=== PATIENT | male | born 1940 | race Caucasian/White ===

== ENCOUNTER 2017-06-26 12:04 | Day surgery (SDC) | payer MEDICARE, BC ==
[2017-06-21 11:17] VITALS: BMI 28.8
[~2017-06-26 12:04] MED LIST: LACTATED RINGERS 1,000 ML IV SCH
[2017-06-26 12:19] VITALS: TEMP 98
[2017-06-26] MEDS ORDERED: LACTATED RINGERS 1,000 ML IV ONE (12:19)
[2017-06-26] MEDS ORDERED: LIDOCAINE 1% 20 ML VIAL (10MG/ML) FOR IV START INTRADERMA ONE (12:19)
[2017-06-26] MEDS ORDERED: LIDOCAINE 1% INJ 10MG/ML (20 ML MDV) ONE (13:32)
[2017-06-26] MEDS ORDERED: PROPOFOL 10 MG/ML 20 ML VIAL IV ONE (13:32)
--- NOTE | 2017-06-26 13:47 | P.GSHP ---
History of Present Illness H&P Date: 06/26/17 Chief Complaint: Screen colonoscopy 's is a 76-year-old male referred from Dr. baldwin. Patient rents today for screening colonoscopy. Patient's last colonoscopy was over 10 years ago. He denies a significant GI complaints. Past Medical History Past Medical History: Asthma, CVA/TIA, Eye Disorder, GERD/Reflux, Hyperlipidemia , Hypertension, Myocardial Infarction ([place]) Additional Past Medical History / Comment(s): CVA-NO RESIDUAL EFFECTS. MACULAR DEGENERATION -RT EYE Last Myocardial Infarction Date:: 2006 History of Any Multi-Drug Resistant Organisms: None Reported Past Surgical History: Coronary Bypass/CABG, Heart Catheterization Additional Past Surgical History / Comment(s): BILAT CATARACTS REMOVED. CABG- 2006. COLONOSCOPY Past Anesthesia/Blood Transfusion Reactions: No Reported Reaction Smoking Status: Never smoker - Past Family History Brother(s) Family Medical History: Cancer Additional Family Medical History / Comment(s): 3 BROTHERS WITH CANCER Sister(s) Family Medical History: Cancer Medications and Allergies Home Medications Medication Instructions Recorded Confirmed Type Furosemide [Lasix] 40 mg PO DAILY PRN 06/21/17 06/21/17 History Loratadine [Claritin] 10 mg PO DAILY 06/21/17 06/21/17 History Metoprolol Tartrate [Lopressor] 12.5 mg PO BID 06/21/17 06/21/17 History Montelukast [Singulair] 10 mg PO HS 06/21/17 06/21/17 History Ranitidine HCl 150 mg PO BID 06/21/17 06/21/17 History Simvastatin 80 mg PO DAILY 06/21/17 06/21/17 History Warfarin [Coumadin] 5 mg PO DAILY 06/21/17 06/21/17 History Allergies Allergy/AdvReac Type Severity Reaction Status Date / Time No Known Allergies Allergy Verified 06/21/17 11:05 Surgical - Exam Vital Signs Temp Pulse Resp BP Pulse Ox 98.0 F 89 18 183/87 98 06/26/17 12:18 06/26/17 12:18 06/26/17 12:18 06/26/17 12:18 06/26/17 12:18 - General well developed, no distress - Eyes PERRL - ENT normal pinna - Neck no masses - Respiratory normal expansion - Cardiovascular Rhythm: regular - Abdomen Abdomen: soft, non tender Assessment and Plan Assessment: We'll perform screening colonoscopy
--- NOTE | 2017-06-26 14:10 | P.OP ---
Date of Procedure: 06/26/17 Preoperative Diagnosis: Screening colonoscopy Postoperative Diagnosis: Diverticulosis Procedure(s) Performed: Colonoscopy Anesthesia: MAC Surgeon: Mani Solis Pathology: none sent Condition: stable Disposition: PACU Description of Procedure: The patient's placed on the endoscopy table in the lateral position. He received IV sedation. Digital rectal exam was performed which revealed no abnormalities. Prostate was symmetric without nodules. Flexible colonoscope was then placed patient anus and passed throughout the entire colon. The colonoscope was then placed patient anus and passed throughout the entire colon. The ileocecal valve was visualized. The cecum, ascending transverse colon appeared normal. The descending; there is extensive diverticular changes. There is some evidence of some diverticular scarring of the colon. Scope was then brought back the rectum and this appeared normal. Scope was withdrawn for patient.
[2017-06-26 14:40] VITALS: BP 137/82; PULSE 64; RESP 20
== END 2017-06-26 14:52 | disposition home or self-care (01) ==
LOC: ORWHC2ENDO 12:04
PROVIDERS: ATTEND Surgery
DX: Z12.11 Encounter for screening for malignant neoplasm of colon (principal); K57.30 Diverticulosis of large intestine without perforation or abscess without bleeding; K21.9 Gastro-esophageal reflux disease without esophagitis; E78.5 Hyperlipidemia, unspecified; I25.10 Atherosclerotic heart disease of native coronary artery without angina pectoris; I10 Essential (primary) hypertension; J45.909 Unspecified asthma, uncomplicated; Z86.73 Personal history of transient ischemic attack (TIA), and cerebral infarction without residual deficits; I25.2 Old myocardial infarction; H35.30 Unspecified macular degeneration; Z95.1 Presence of aortocoronary bypass graft; Z79.01 Long term (current) use of anticoagulants; Z79.899 Other long term (current) drug therapy
CPT/HCPCS: J2001; J2704; G0121; 45378

== ENCOUNTER 2018-04-23 09:36 | Day surgery (SDC) | payer MEDICARE, BC ==
[2018-04-18 11:34] VITALS: BMI 29.3
[~2018-04-23 09:36] MED LIST changes: +DEXAMETHASONE SOD PHOSPHATE 10 MG/ML 1 ML VIAL IV ONE; +HYDROmorphone 0.5 MG/0.5 ML SYRINGE IVP PRN; +ONDANSETRON 4 MG/2 ML VIAL IVP ONE; +SCOPOLAMINE 1.5MG/72HR PATCH TRANSDERM ONE
[2018-04-23 09:59] VITALS: RESP 16; TEMP 97.6
[2018-04-23] MEDS ORDERED: LIDOCAINE 1% 20 ML VIAL (10MG/ML) FOR IV START INTRADERMA ONE (10:25)
[2018-04-23] MEDS ORDERED: LIDOCAINE 1% INJ 10MG/ML (20 ML MDV) ONE (10:33)
[2018-04-23] MEDS ORDERED: PROPOFOL 10 MG/ML 20 ML VIAL IV ONE (10:33)
--- NOTE | 2018-04-23 10:41 | P.GSHP ---
History of Present Illness H&P Date: 04/23/18 Chief Complaint: GERD This a 77-year-old male presents today for EGD. Patient's had issues with GERD. Past Medical History Past Medical History: Asthma, CVA/TIA, Eye Disorder, GERD/Reflux, Hyperlipidemia , Hypertension, Myocardial Infarction ([place]) Additional Past Medical History / Comment(s): STATES HAVING "BLOODY EMESIS" CVA- NO RESIDUAL EFFECTS, MACULAR DEGENERATION -RT EYE Last Myocardial Infarction Date:: 2006 History of Any Multi-Drug Resistant Organisms: None Reported Past Surgical History: Coronary Bypass/CABG, Heart Catheterization Additional Past Surgical History / Comment(s): BILAT CATARACTS REMOVED, CABG- 2006 X4, 22 STITCHES IN HEAD IN 2006, COLONOSCOPY Past Anesthesia/Blood Transfusion Reactions: No Reported Reaction Smoking Status: Never smoker - Past Family History Brother(s) Family Medical History: Cancer Additional Family Medical History / Comment(s): 3 BROTHERS WITH CANCER Sister(s) Family Medical History: Cancer Medications and Allergies Home Medications Medication Instructions Recorded Confirmed Type Furosemide [Lasix] 40 mg PO DAILY PRN 06/21/17 04/23/18 History Loratadine [Claritin] 10 mg PO DAILY 06/21/17 04/23/18 History Metoprolol Tartrate [Lopressor] 12.5 mg PO BID 06/21/17 04/23/18 History Montelukast [Singulair] 10 mg PO HS 06/21/17 04/23/18 History Ranitidine HCl 150 mg PO BID 06/21/17 04/23/18 History Simvastatin 80 mg PO DAILY 06/21/17 04/23/18 History Warfarin [Coumadin] 2.5 mg PO DAILY 06/21/17 04/23/18 History Albuterol Inhaler [Ventolin Hfa 1 - 2 puff INHALATION RT-Q6H PRN 04/18/18 History Inhaler] Vit C/E/Zn/Coppr/Lutein/Zeaxan 1 each PO BID 04/18/18 04/23/18 History [Preservision Areds 2 Softgel] Allergies Allergy/AdvReac Type Severity Reaction Status Date / Time No Known Allergies Allergy Verified 04/23/18 10:00 Surgical - Exam Vital Signs Temp Pulse Resp BP Pulse Ox 97.6 F 57 L 16 173/82 95 04/23/18 09:58 04/23/18 09:58 04/23/18 09:58 04/23/18 09:58 04/23/18 09:58 - General well developed, no distress - Eyes PERRL - ENT normal pinna - Neck no masses - Respiratory normal expansion - Cardiovascular Rhythm: regular - Abdomen Abdomen: soft, non tender Assessment and Plan Assessment: GERD. We'll perform EGD.
--- NOTE | 2018-04-23 10:49 | P.OP ---
Date of Procedure: 04/23/18 Preoperative Diagnosis: GERD Postoperative Diagnosis: Antral gastritis Procedure(s) Performed: EGD Anesthesia: MAC Surgeon: Mani Solis Pathology: other (Antrum) Condition: stable Disposition: PACU Description of Procedure: The patient's placed on the endoscopy table in the lateral position. He received IV sedation. The gastric was placed oropharynx passed in the esophagus and stomach. Scope was then placed through the pylorus. The first and second portion of the duodenum appeared normal. The scope was then brought back the antrum and this appeared mildly inflamed. A biopsies performed. Scope was then retroflexed and the remainder stomach appeared normal. As no evidence of a hiatal hernia. The distal esophagus. Normal. The proximal esophagus. Normal. Scope withdrawn for patient.
[2018-04-23 11:19] VITALS: BP 140/78; PULSE 56
== END 2018-04-23 11:33 | disposition home or self-care (01) ==
LOC: ORWHC2ENDO 09:36
PROVIDERS: ATTEND Surgery
DX: K29.50 Unspecified chronic gastritis without bleeding (principal); K21.9 Gastro-esophageal reflux disease without esophagitis; J45.909 Unspecified asthma, uncomplicated; I10 Essential (primary) hypertension; E78.5 Hyperlipidemia, unspecified; I25.10 Atherosclerotic heart disease of native coronary artery without angina pectoris; I25.2 Old myocardial infarction; Z86.73 Personal history of transient ischemic attack (TIA), and cerebral infarction without residual deficits; Z95.1 Presence of aortocoronary bypass graft; Z98.61 Coronary angioplasty status; Z79.01 Long term (current) use of anticoagulants; Z79.899 Other long term (current) drug therapy
CPT/HCPCS: 88305; 43239; J1100; J2405; J2001; J2704

== ENCOUNTER → 2020-12-13 | Outpatient (CLI) | payer MEDICARE, BC ==
--- NOTE | 2020-12-13 17:19 | US ---
EXAMINATION TYPE: US chest DATE OF EXAM: 12/13/2020 COMPARISON: NONE CLINICAL HISTORY: J90 PLEURAL EFFUSION. Pt states known pleural effusions from images done at outside facility TECHNIQUE: Targeted ultrasound of the posterior lower bilateral hemithoraces EXAM MEASUREMENTS: Right Pleural Effusion pocket size: 3.5 cm Right skin surface to fluid distance: 3.3 cm Left Pleural Effusion pocket size: 8.1 cm Left skin surface to fluid distance: 3.3 cm Right side NOT marked for possible thoracentesis outside the dept. Left side marked for possible thoracentesis outside the dept. Pulmonologists are able to review the images in the patient?s EMR. IMPRESSIONS: 1. Bilateral pleural effusions as described above. The right side was NOT marked for thoracentesis . The left side was marked for possible thoracentesis.
== END | disposition home or self-care (01) ==
LOC: RADUSWWP 14:41
PROVIDERS: ATTEND Internal Medicine
DX: J90 Pleural effusion, not elsewhere classified (principal)
CPT/HCPCS: 76604

== ENCOUNTER → 2020-12-22 | Outpatient (CLI) | payer MEDICARE, BC ==
[2020-12-23 02:33] LABS: African American GFR (CKD) 47.1 (60.0-200.0); Anion Gap 13.6 mmol/L (4.00-12.00); BUN/Creat Ratio 27.5 Ratio (12.00-20.00); Calcium 10.1 mg/dL (8.7-10.3); Carbon Dioxide 23.4 mmol/L (21.6-31.8); Non-African American GFR(CKD) 40.7 (60.0-200.0); Potassium 4.6 mmol/L (3.5-5.5)
== END | disposition home or self-care (01) ==
LOC: LABWHC1 13:53
PROVIDERS: ATTEND Internal Medicine
DX: I50.9 Heart failure, unspecified (principal)
CPT/HCPCS: 36415; 80048; 83880

== ENCOUNTER → 2021-01-27 | Outpatient (CLI) | payer MEDICARE, BC ==
[2021-01-28 02:51] LABS: African American GFR (CKD) 66.7 (60.0-200.0); Anion Gap 10.1 mmol/L (4.00-12.00); Calcium 10.4 mg/dL (8.7-10.3); Carbon Dioxide 21.9 mmol/L (21.6-31.8); Chol/HDL Ratio 2.5; LDL Cholesterol,Calculated 57.8 mg/dL (0.0-131.0); Non-African American GFR(CKD) 57.6 (60.0-200.0); Potassium 4.7 mmol/L (3.5-5.5); VLDL Calculation 14.2 mg/dL (5.00-40.00)
== END | disposition home or self-care (01) ==
LOC: LABWHC1 10:38
PROVIDERS: ATTEND Internal Medicine Clinical Cardiac Electrophysiology
DX: I10 Essential (primary) hypertension (principal); I25.10 Atherosclerotic heart disease of native coronary artery without angina pectoris; Z95.1 Presence of aortocoronary bypass graft
CPT/HCPCS: 36415; 80048; 80061; 84443

== ENCOUNTER 2023-01-09 11:36 | Day surgery (SDC) | payer MEDICARE, BC ==
[~2023-01-09 11:36] MED LIST changes: +ALPRAZolam 0.25 MG TAB PO PRN; +ALPRAZolam 0.5 MG TAB PO PRN; +ASPIRIN 325 MG TAB PO STA; +ATORVASTATIN 80 MG TAB PO STA; -DEXAMETHASONE SOD PHOSPHATE 10 MG/ML 1 ML VIAL IV ONE; +HEPARIN SODIUM,PORCINE 10,000 UNIT in SODIUM CHLORIDE 0.9% 1,000 ML IRRIGATION PRN; +HEPARIN SODIUM,PORCINE 2,500 UNIT in SODIUM CHLORIDE 0.9% 250 ML IRRIGATION PRN; -HYDROmorphone 0.5 MG/0.5 ML SYRINGE IVP PRN; -LACTATED RINGERS 1,000 ML IV SCH; +NITROGLYCERIN SL TABS 0.4 MG TAB SUBLINGUAL PRN; -ONDANSETRON 4 MG/2 ML VIAL IVP ONE; -SCOPOLAMINE 1.5MG/72HR PATCH TRANSDERM ONE
[2023-01-09] MEDS: SODIUM CHLORIDE 0.9% 1,000 ML in EMPTY BAG 1 BAG IV SCH ×2 (11:59→20:40)
[2023-01-09 12:15] LABS: Anisocytosis Slight; Basophils % (A) 0 %; Eosinophils # (A) 0.2 k/uL (0-0.7); Eosinophils % (A) 2 %; HCT 36.2 % (39.0-53.0); HGB 11.8 gm/dL (13.0-17.5); Lymphocytes # (A) 0.8 k/uL (1.0-4.8); Lymphocytes % (A) 11 %; MCH 29.2 pg (25.0-35.0); MCHC 32.6 g/dL (31.0-37.0); MCV 89.6 fL (80.0-100.0); Mean Platelet Volume 8.6; Monocytes # (A) 0.6 k/uL (0-1.0); Monocytes % (A) 8 %; Neutrophils # (A) 5.7 k/uL (1.3-7.7); Neutrophils % (A) 76 %; Platelet Count 166 k/uL (150-450); RBC 4.04 m/uL (4.30-5.90); RDW 16.7 % (11.5-15.5); WBC 7.5 k/uL (3.8-10.6)
[2023-01-09 12:31] LABS: African American GFR (CKD) 67 (>60 ml/min/1.73 sqM); Anion Gap 9 mmol/L; Blood Urea Nitrogen 22 mg/dL (9-20); Calcium 9.4 mg/dL (8.4-10.2); Carbon Dioxide 23 mmol/L (22-30); Chloride 103 mmol/L (98-107); Glucose 91 mg/dL (74-99); Non-African American GFR(CKD) 58 (>60 ml/min/1.73 sqM); Potassium 4.6 mmol/L (3.5-5.1); Sodium 135 mmol/L (137-145)
[2023-01-09] MEDS ORDERED: fentaNYL (PF) 50 MCG/ML 2 ML AMP ONE (15:03)
[2023-01-09] MEDS ORDERED: IV FLUID CONTINUATION 350 ML IV ONE (15:08)
[2023-01-09] MEDS: BENZOCAINE SPRAY 1 CAN TOPICAL ONE ×2 (15:10→15:19)
[2023-01-09] MEDS ORDERED: MIDAZOLAM 2 MG/2 ML VIAL IVP ONE ×2 (15:19→15:22)
[2023-01-09] MEDS: fentaNYL (PF) 50 MCG/ML 2 ML AMP IVP ONE ×2 (15:19→15:22)
[2023-01-09] MEDS ORDERED: LIDOCAINE 1% INJ 10MG/ML (20 ML MDV) ONE (15:49)
[2023-01-09] MEDS ORDERED: LIDOCAINE 1% INJ 10MG/ML (20 ML MDV) SQ ONE (15:58)
[2023-01-09] MEDS ORDERED: HEPARIN SODIUM 1,000 UN/ML (10ML VL) ONE (16:22)
[2023-01-09] MEDS ORDERED: HEPARIN SODIUM 1,000 UN/ML (10ML VL) IV ONE (16:23)
[2023-01-09] MEDS ORDERED: IOPAMIDOL-370 100ML BTL INJ ONE (16:32)
[2023-01-09 16:33] LABS: O2 Sat Blood Gas 96.6 %
[2023-01-09 16:34] LABS: O2 Sat Blood Gas 58.1 %
[2023-01-09 18:09] VITALS: RESP 17; TEMP 96.7
[2023-01-09 21:52] VITALS: BP 158/59; PULSE 57
--- NOTE | 2023-01-09 23:11 | P.TEE ---
Description of Procedure(s): Procedure performed: Transesophageal Echocardiogram with color flow doppler, pulsed wave doppler and continuous wave doppler, moderate conscious sedation Moderate conscious sedation: Moderate conscious sedation was supplied with direct supervision of myself using Versed and Fentanyl. Complications: none Indications: Aortic stenosis PROCEDURE: After the risks, benefits and alternatives of the above mentioned procedure was explained in detail with the patient, informed consent was obtained. Patient was brought to the lab in a fasting state. Patient was given IV Versed and Fentanyl for sedation. The throat was sprayed with Hurricane to anesthetize the throat. A lubricated Omni probe was then introduced into the esophagus and stomach and multiple views were obtained. 2D echo with color flow doppler, pulsed wave doppler and continuous wave doppler was utilized. Agitated saline bubbles were injected to assess for any intra-atrial shunt. The probe was then removed. Patient tolerated the procedure well. Patient was transferred to the post procedure area in stable and satisfactory condition. FINDINGS: 1. The aortic valve is tricuspid with moderate aortic stenosis and moderate aortic regurgitation. ARIEL 1.1-1.3cm2 by planimetry. 2. The mitral valve appears be normal with moderate mitral regurgitation. There is systolic blunting of pulmonary vein however no flow reversal. 3. Tricuspid valve appears to be normal with moderate to severe tricuspid regurgitation 4. There is no PFO, negative bubble study 5. Left atrial appendage is free of clot. 6. Left ventricular ejection fraction 50-55% without wall motion abnormalities
--- NOTE | 2023-01-09 23:46 | P.CARDCATH ---
Description of Procedure: PROCEDURES PERFORMED: Left and right heart catheterization, left coronary angiography, MOREIRA to diagonal angiography, ultrasound guided arterial access INDICATION: Aortic stenosis, dyspnea with minimal exertion, CAD with history of CABG CONSENT:I have discussed the risks, benefits and alternative therapies for the above-mentioned procedure and for both sedation/analgesia as well as necessary blood product administration, if indicated, as they pertain to this patient. The patient has indicated understanding and acceptance of the risks and procedures discussed. PROCEDURE: After the risks, benefits and alternatives of the above mentioned procedure explained in detail with the patient, informed consent was obtained. Patient was taken to the catheterization lab and prepped and draped in usual fashion. There was significant difficulty engaging the left main previously in 2020 from left radial approach and therefore femoral access was recommended. A 6Fr sheath was placed in the right femoral artery and right femoral vein using ultrasound guidance and modified Seldinger technique. A 6Fr [place] Yobany catheter was placed in the RA, RV, PA and PCWP positions. Thermodilution was performed and oxygen saturations were obtained for CLEMENTINE calculations. The [place] Yobany catheter was removed. The RCA was noted to be occluded previously and given contrast threshold not imaged again. The only remaining graft noted from 2020 was MOREIRA to mid LAD/ diagonal branch. MOREIRA to LAD angiography was performed with a 6Fr MOREIRA catheter. Left coronary angiography was performed with a 6- German CLS 4.5 catheter. There was dampening of the left main with engagement with the 6Fr catheter. Given contrast threshold, complex disease, the decision was made to stop the procedure. The right femoral angiogram showed adequate anatomy and a 6Fr Angioseal was placed with hemostasis achieved. The venous sheath was left in place to be pulled at a later time. The patient tolerated the procedure well. Patient was transported back to the post catheterization holding area in stable condition. Conscious Sedation: Patient was monitored under the direct supervision of myself for conscious sedation using Versed and fentanyl for a total duration of 36 minutes HEMODYNAMICS: Aorta: 143/66 LV: 155/7, LVEDP 16. Mean gradient 15mmHg with pullback PCWP: 21 PA: 62/24 RV: 62/6 RA: 13 RA oxygen sat: 58% PA oxygen sat: 58% Femoral arterial oxyegn sat:97% Cardiac output by CLEMENTINE: 4.99 L/min Cardiac index by CLEMENTINE: 2.43 L/min/m2 Cardiac outpt by thermodiluation: 4.2 L/min Cardiac index by thermodilution: 2.07 L.min/m2 SELECTIVE CORONARY ARTERIOGRAPHY: LEFT MAIN: The left main is a large caliber vessel which bifurcates into the LAD and circumflex. There is distal left main 95% stenosis LEFT ANTERIOR DESCENDING CORONARY ARTERY: LAD is a large caliber vessel which wraps around to the apex. There is 100% proximal LAD stenosis. LEFT CIRCUMFLEX CORONARY ARTERY: Left circumflex is a moderate caliber vessel. The circumflex comes off at a nearly 120 degree angle. There is diffuse midl 20-30% proximal stenosis. There is 90% stenosis of OM1. There are left to right collaterals. RIGHT CORONARY ARTERY: The right coronary artery was not imaged however known to be occluded. MOREIRA to LAD/diagonal angiography: The MOREIRA is widely patent. It appears to tie into a short segment of mid LAD and a diagonal 1 branch. There appears to be faint left to left collaterals up to the mid to apical LAD. FINAL IMPRESSION: 1. CAD as described above including 95% distal left main stenosis 90% OM1 stenosis, 100% proximal LAD and known 100% RCA stenosis 2. Only patent graft MOREIRA to mid LAD/diagonal 3. Low normal CO/CI 4. Mild to moderate aortic stenosis by gradients 5. Mildly elevated left and right sided pressures PLAN: 1. Aggressive risk factor modification per most recent ACC/AHA guidelines. 2. Patient with poor anatomy for complete revascularization with stress and echo showing viable myocardium in LAD and RCA distribution. [place] revascularization would be by redo CABG however if felt too high risk would recommend PCI left main into circumflex. May be difficult with angulation and may require support.
== END 2023-01-09 22:00 | disposition home or self-care (01) ==
LOC: CATHCVL 11:36 → 6NMEDSUR 16:36 → CATHCVL 22:00
PROVIDERS: ATTEND Internal Medicine
DX: I25.10 Atherosclerotic heart disease of native coronary artery without angina pectoris (principal); I35.0 Nonrheumatic aortic (valve) stenosis; I10 Essential (primary) hypertension; E78.5 Hyperlipidemia, unspecified; Z95.1 Presence of aortocoronary bypass graft; Z79.899 Other long term (current) drug therapy
CPT/HCPCS: 93312; 93320; 93325; 93461; 76937; 80048; 85018; 82810; 85025; C1760; C1769 ×3; C1887; C1894 ×3; J2250; J2001; J3010; J1644; Q9967

== ENCOUNTER 2023-02-08 13:30 | Inpatient (IN) | payer MEDICARE, BC ==
[2023-02-05 09:48] VITALS: BMI 28.5
[2023-02-08 12:37] LABS: Anisocytosis Slight; Basophils % (A) 0 %; Eosinophils # (A) 0.2 k/uL (0-0.7); Eosinophils % (A) 3 %; HCT 35.8 % (39.0-53.0); HGB 11.8 gm/dL (13.0-17.5); Hypochromasia Slight; Lymphocytes # (A) 0.6 k/uL (1.0-4.8); Lymphocytes % (A) 9 %; MCH 29.3 pg (25.0-35.0); MCV 88.7 fL (80.0-100.0); Mean Platelet Volume 8.1; Monocytes # (A) 0.7 k/uL (0-1.0); Monocytes % (A) 10 %; Neutrophils % (A) 74 %; Platelet Count 170 k/uL (150-450); RBC 4.04 m/uL (4.30-5.90); RDW 16.1 % (11.5-15.5); WBC 6.7 k/uL (3.8-10.6)
[2023-02-08 12:38] LABS: INR 1.2 (<1.2); Prothrombin Time 12.4 sec (9.0-12.0)
[2023-02-08 12:41] LABS: African American GFR (CKD) 59 (>60 ml/min/1.73 sqM); Anion Gap 8 mmol/L; Blood Urea Nitrogen 19 mg/dL (9-20); Calcium 9.5 mg/dL (8.4-10.2); Carbon Dioxide 26 mmol/L (22-30); Chloride 100 mmol/L (98-107); Glucose 95 mg/dL (74-99); Non-African American GFR(CKD) 51 (>60 ml/min/1.73 sqM); Potassium 4.4 mmol/L (3.5-5.1); Sodium 134 mmol/L (137-145)
[~2023-02-08 13:30] MED LIST changes: +HEPARIN SODIUM,PORCINE (1 ML) 2,500 UNIT in SODIUM CHLORIDE 0.9% 250 ML IRRIGATION PRN; -HEPARIN SODIUM,PORCINE 2,500 UNIT in SODIUM CHLORIDE 0.9% 250 ML IRRIGATION PRN; +SODIUM CHLORIDE 0.9% 1,000 ML IV ONE
[2023-02-08] MEDS ORDERED: fentaNYL (PF) 50 MCG/ML 2 ML AMP ONE (13:38)
[2023-02-08] MEDS: MIDAZOLAM 2 MG/2 ML VIAL IVP ONE ×2 (13:49→15:21)
[2023-02-08] MEDS ORDERED: LIDOCAINE 1% INJ 10MG/ML (20 ML MDV) SQ ONE (13:49)
[2023-02-08] MEDS: fentaNYL (PF) 50 MCG/ML 2 ML AMP IVP ONE ×2 (13:49→15:21)
[2023-02-08] MEDS: HEPARIN SODIUM 1,000 UN/ML (10ML VL) IV ONE ×6 (13:58→15:34)
[2023-02-08] MEDS: NITROGLYCERIN 1000MCG/10ML SYRINGE INTRACORON ONE ×3 (14:46→14:59)
[2023-02-08] MEDS ORDERED: IOPAMIDOL-370 100ML BTL INJ ONE ×2 (15:01→16:15)
[2023-02-08] MEDS ORDERED: HEPARIN SODIUM 1,000 UN/ML (10ML VL) ONE (15:12)
[2023-02-08] MEDS ORDERED: NITROGLYCERIN SL TABS 0.4 MG TAB SUBLINGUAL PRN (16:30)
[2023-02-08] MEDS ORDERED: RX INFO: IV CONTRAST WAS GIVEN 1 EACH MISC MISCELLANE PRN (16:30)
[2023-02-08] MEDS ORDERED: SODIUM CHLORIDE 0.9% 1,000 ML in EMPTY BAG 1 BAG IV SCH (16:30)
[2023-02-08] MEDS ORDERED: ALBUTEROL NEBULIZED 2.5 MG/3 ML INHALATION PRN (16:32)
[2023-02-08] MEDS: SODIUM CHLORIDE 0.9% 1,000 ML in EMPTY BAG 1 BAG IV SCH ×2 (18:35→22:10)
[2023-02-08] MEDS: carvediloL 3.125 MG TAB PO SCH (18:38)
[2023-02-08] MEDS ORDERED: WARFARIN 5 MG TAB PO ONE (20:00)
[2023-02-08] MEDS ORDERED: DONEPEZIL 10 MG TAB PO SCH (21:00)
[2023-02-08] MEDS ORDERED: ATORVASTATIN 80 MG TAB PO SCH (21:00)
[2023-02-08] MEDS ORDERED: LORATADINE 10 MG TAB PO SCH (21:00)
[2023-02-08] MEDS: RANOLAZINE 500 MG TAB.ER.12H PO SCH (21:59)
[2023-02-08] MEDS: VIT A,C & E-LUTEIN-MINERALS 1 EACH TAB PO SCH (22:11)
--- NOTE | 2023-02-08 23:08 | P.PRCINT ---
Percutaneous Coronary Int. - Percutaneous Coronary Intervention Percutaneous Coronary Intervention: PROCEDURES PERFORMED: Left coronary angiography, ultrasound guided arterial access, Impella protected PCI of left main into circumflex with a 3.5 x 23mm Xience MICHELLE, post dilated with a 4.5 NC balloon, PCI circumflex into OM2 with overlapping 3.0 x 12mm Xience, 3.0 x 28mm Xience, 3.0 x 8mm Xience and PCI OM1 with Xience 2.5 x 23mm Xience MICHELLE with kissing balloon angioplasty, Shockwave lithotripsy balloon angioplasty left main INDICATION: CAD with 90% distal left main stenosis, dyspnea on exertion CONSENT:I have discussed the risks, benefits and alternative therapies for the above-mentioned procedure and for both sedation/analgesia as well as necessary blood product administration, if indicated, as they pertain to this patient. The patient has indicated understanding and acceptance of the risks and procedur es discussed. PROCEDURE: After the risks, benefits and alternatives of the above mentioned procedure explained in detail with the patient, informed consent was obtained. Patient was taken to the catheterization lab and prepped and draped in usual fashion. A 6Fr sheath was placed in the right femoral artery using modified Seldinger technique and ultrasound guidance. 2 Perclose Preclose were placed at the 10 and 2 oclock position. Next a 14 Fr sheath was placed. A 6 Fr pigtail catheter was inserted into the left ventricle and pressure measurements were made. Next a Impelle CP was placed in the LV over a 0.018 wire. The Impella was turned on with 3.5L/min outpt The decision was made to perform PCI of the left main into circumflex. A 0.014 BMW wire was advanced into the distal circumflex. An additional 0.014 whisper wire was advanced into the OM2. A 32.5 x 12 then 3.0 x 12mm balloon was used to predilate the left main into circumflex. IVUS was performed which showed reference vessel 3.25-3.5 of the circumflex and diffuse disease of the left main. Next Shockwave lithotripsy angioplasty was performed for 10 rounds of the left main was a 3.0 balloon. Next a 2.5 x 12 mm balloon was used to predilate OM1 and OM2. There was temporary no reflow of OM1 and balloon angioplasty restored flow. Next a 2.5 x 23mm Xience MICHELLE was placed in the OM1 into the circumflex. Balloon angioplasty was used to crush the proximal portion of the OM1 stent. Next the wire was removed from the OM1 and placed in the OM2 branch and the OM1 wire was placed in the OM2 branch. Kissing balloon angioplasty was performed with a 2.5 x 12 and 3.0 x 12mm balloon in the OM1 and OM2 respectively. Next a 3.0 x 28mm Xience MICHELLE was placed jailing the OM1 branch. There was still distal disease which was covered with a 3.0 x 8mm Xience MICHELLE. There was some difficulty advancing a 3.0 x 15 mm Xience MICHELLE at the proximal portion of the stent, however with the help of a guideliner, a 3.0 x 12mm Xience MICHELLE was able to be placed proximal to the stents in the mid circumflex. The left main was predilated with a 4.0 NC balloon. Next a 3.5 x 23mm Xience MICHELLE was placed in the left main into the circumflex and deployed. The proximal and mid portion of the stent were post dilated with a 4.5 NC balloon. Repeat IVUS showed good stent expansion with no dissection. Final angiograms were performed. Preintervention there was 90% left main stenosis and CHRISTOFER 3 flow and post intervention there was <10% stenosis and CHRISTOFER 3 flow. The Impella was weaned and withdrawn from the ventricle and withdrawn from the sheath. The 14 Fr sheath was removed and the Percloses were deployed with hemostasis achieved. The patient tolerated the procedure well. Patient was transported back to the post catheterization holding area in stable condition. Conscious Sedation: Patient was monitored under the direct supervision of myself for conscious sedation using Versed and fentanyl for a total duration of 157 m inutes HEMODYNAMICS: Ao: 134/71 LV: 131/8, LVEDP 18 SELECTIVE CORONARY ARTERIOGRAPHY: LEFT MAIN: The left main is a large caliber vessel which bifurcates into the LAD and circumflex. There is distal left main 90% stenosis LEFT ANTERIOR DESCENDING CORONARY ARTERY: LAD is a large caliber vessel which wraps around to the apex. There is 100% proximal LAD stenosis. LEFT CIRCUMFLEX CORONARY ARTERY: Left circumflex is a moderate caliber vessel. There is diffuse mile 20-30% proximal stenosis. There is 90% stenosis of OM1. There is 95% stenosis of mid circumflex into OM2. There are left to right collaterals. RIGHT CORONARY ARTERY: The right coronary artery was not imaged however known to be occluded. MOREIRA to LAD/diagonal angiography: The MOREIRA was not imaged however known to be patent FINAL IMPRESSION: 1. CAD as described above including 90% distal left main stenosis 90% OM1 stenosis, 95% stenosis OM2, 100% proximal LAD and known 100% RCA stenosis 2. Only patent graft MOREIRA to mid LAD/diagonal 3. S/p Impella protected PCI of left main into circumflex with a 3.5 x 23mm Xience MICHELLE, post dilated with a 4.5 NC balloon, PCI circumflex into OM2 with overlapping 3.0 x 12mm Xience, 3.0 x 28mm Xience, 3.0 x 8mm Xience and PCI OM1 with Xience 2.5 x 23mm Xience MICHELLE with kissing balloon angioplasty, Shockwave lithotripsy balloon angioplasty left main PLAN: 1. Aggressive risk factor modification per most recent ACC/AHA guidelines. 2. Continue Plavix and Coumadin for 6 months. 3. Consider KICK BOXER of RCA if still having significant angina type symptoms.
[2023-02-09 04:50] LABS: Glucose,Whole Blood 120 mg/dL (70-110)
[2023-02-09] MEDS: carvediloL 3.125 MG TAB PO SCH ×2 (05:20→17:40)
[2023-02-09] MEDS: SODIUM CHLORIDE 0.9% 1,000 ML in EMPTY BAG 1 BAG IV SCH ×2 (05:23→15:35)
[2023-02-09] MEDS ORDERED: SYMBICORT 80-4.5 MCG INHALER INHALATION SCH (08:00)
[2023-02-09 08:18] VITALS: TEMP 97.9
[2023-02-09] MEDS: RANOLAZINE 500 MG TAB.ER.12H PO SCH (08:18)
[2023-02-09] MEDS: VIT A,C & E-LUTEIN-MINERALS 1 EACH TAB PO SCH (08:19)
[2023-02-09] MEDS ORDERED: FAMOTIDINE 20 MG TAB PO SCH (09:00)
[2023-02-09] MEDS ORDERED: ASPIRIN 81 MG PO SCH (09:00)
[2023-02-09] MEDS ORDERED: allopurinoL 300 MG TAB PO SCH (09:00)
[2023-02-09] MEDS ORDERED: ISOSORBIDE MONONITRATE ER 30 MG TAB.ER.24H PO SCH (09:00)
[2023-02-09] MEDS ORDERED: CLOPIDOGREL 75 MG TAB PO SCH (09:00)
[2023-02-09] MEDS ORDERED: EZETIMIBE 10 MG TAB PO SCH (09:00)
[2023-02-09 09:53] LABS: African American GFR (CKD) 66 (>60 ml/min/1.73 sqM); Non-African American GFR(CKD) 57 (>60 ml/min/1.73 sqM)
[2023-02-09 09:57] LABS: INR 1.1 (<1.2); Prothrombin Time 11.8 sec (9.0-12.0)
[2023-02-09 11:36] VITALS: RESP 16
[2023-02-09 15:22] VITALS: BP 143/75; PULSE 85
[2023-02-09] MEDS ORDERED: FUROSEMIDE 10 MG/ML 4 ML VIAL IV STA (15:31)
[2023-02-09] MEDS ORDERED: WARFARIN 7.5 MG TAB PO ONE ×2 (16:00→18:00)
[2023-02-09] MEDS ORDERED: WARFARIN 5 MG TAB PO SCH (18:00)
--- NOTE | 2023-02-09 22:41 | P.PN ---
Subjective Progress Note Date: 02/09/23 SUBJECTIVE: Patient had a complex coronary intervention with intravenous support yesterday. He tolerated the procedure well. His right groin access site appears intact with no concerns of bleeding or hematoma Vitals: 143/75, heart rate 85 Labs: Creatinine is stable at 1.1 PHYSICAL EXAMINATION Vital signs reviewed. Head: Normocephalic. Eyes: Sclerae nonicteric. Neck: Brisk carotid upstroke, no jugular venous distention. Lungs: Clear to auscultation. Heart: Regular rate and rhythm, S1-S2, no S3, no murmur or rub. Abdomen: Soft nontender, positive bowel sounds no organomegaly. Extremities: No edema, intact distal pulses. ASSESSMENT Coronary artery disease status post complex PCI with 5 stents to circumflex, impaired-assisted procedure PLAN Patient received IV fluids after cardiac interventions and appears mildly fluid overloaded. His kidney function is stable. I will give him 1 dose of IV Lasix 40 mg. Patient is safe to be discharged from [facility] standpoint Continue his current cardiac medication without any changes. He is on aspirin and Plavix. Imdur 30 mg, Ranexa 500 mg, warfarin. Patient was offered to be prescribed Eliquis but they prefer warfarin at this time. I explained him the risk for being on triple blood thinners. Nondistended and if they have any bleeding they will notify us. One of her Dr. Bowers shortly in 1-2 weeks Objective - Vital Signs Vital signs: Vital Signs Temp 97.9 F 02/09/23 08:17 Pulse 85 02/09/23 15:21 Resp 16 02/09/23 15:21 BP 143/75 02/09/23 15:21 Pulse Ox 92 L 02/09/23 15:21 FiO2 Intake & Output 02/09/23 02/09/23 02/10/23 06:59 18:59 06:59 Output Total 150 Balance -150 Output: Urine 150 Other: Voiding Method Urinal # Voids 1 - Labs CBC & Chem 7: 02/08/23 11:48 02/09/23 08:46 Labs: Abnormal Lab Results - Last 24 Hours (Table) 02/09/23 Range/Units 04:47 POC Glucose (mg/dL) 120 H (70-110) mg/dL
[2023-02-10] MEDS ORDERED: FUROSEMIDE 20 MG TAB PO SCH (09:00)
[2023-02-10] MEDS ORDERED: FAMOTIDINE 20 MG TAB PO SCH (09:00)
== END 2023-02-09 17:59 | disposition home or self-care (01) | DRG 220 ==
LOC: 3SCARD 16:45
PROVIDERS: ADMIT Internal Medicine; ATTEND Internal Medicine
PROC: 5A0221D Assistance with Cardiac Output using Impeller Pump, Continuous (ICD-10-PCS; principal; 2023-02-08 13:30)
PROC: 027037Z Dilation of Coronary Artery, One Artery with Four or More Drug-eluting Intraluminal Devices, Percutaneous Approach (ICD-10-PCS; 2023-02-08 13:30)
PROC: 02F03ZZ Fragmentation in Coronary Artery, One Artery, Percutaneous Approach (ICD-10-PCS; 2023-02-08 13:30)
DX: I25.10 Atherosclerotic heart disease of native coronary artery without angina pectoris (principal); I48.19 Other persistent atrial fibrillation; I71.21 Aneurysm of the ascending aorta, without rupture; I10 Essential (primary) hypertension; I25.5 Ischemic cardiomyopathy; E78.5 Hyperlipidemia, unspecified; I08.3 Combined rheumatic disorders of mitral, aortic and tricuspid valves; Z95.1 Presence of aortocoronary bypass graft; Z79.01 Long term (current) use of anticoagulants; Z79.02 Long term (current) use of antithrombotics/antiplatelets; Z79.82 Long term (current) use of aspirin; Z79.899 Other long term (current) drug therapy
CPT/HCPCS: 0715T; 33990; 80048; 82565; 85025; 85610; 92978; 94640; 94760

== ENCOUNTER 2023-04-01 18:47 | Inpatient (IN) | payer MEDICARE, BC ==
--- NOTE | 2023-04-01 19:47 | ED ---
General Adult HPI - General Source: RN notes reviewed <Yulia Morris - Last Filed: 04/01/23 19:46> - General Source: RN notes reviewed, old records reviewed Limitations: no limitations - History of Present Illness -: week(s) Radiation: non-radiation Severity scale (1-10): 10 Consistency: constant Improves with: none Worsens with: none Associated Symptoms: chest pain, shortness of breath, weakness Treatments Prior to Arrival: none <Rashaad Del Castillo - Last Filed: 04/06/23 17:06> - General Stated complaint: ROXANNA, Sent by Dr Salgado Time Seen by Provider: 04/01/23 19:46 - History of Present Illness Initial comments: 82-year-old male presents to the emergency department with a chief complaint of worsening shortness of breath. Patient reports he is a patient of Dr. Bowers and was referred to the emergency department in order to be admitted. Patient reports worsening shortness breath the 2 months after having his cardiac stents placed. (Yulia Morris) This is a 82-year-old male DF for evaluation of worsening shortness of breath. Patient is cardiology patient was seen in the office with no improvement. Patient was seen by cardiology and sent in for evaluation today worsening symptoms worsening shortness of breath with no current active chest pain no fevers no cough no congestion. Symptoms of been increasing for 2 months (Rashaad Del Castillo) - Related Data Home Medications Medication Instructions Recorded Confirmed Loratadine [Claritin] 10 mg PO HS@2100 06/21/17 04/01/23 Warfarin [Coumadin] 5 mg PO DAILY@1800 06/21/17 04/01/23 Albuterol Inhaler [Ventolin Hfa 1 - 2 puff INHALATION RT-Q6H PRN 04/18/18 04/01/23 Inhaler] Vit C/E/Zn/Coppr/Lutein/Zeaxan 1 cap PO BID@0900,2100 04/18/18 04/01/23 [Preservision Areds 2 Softgel] Atorvastatin [Lipitor] 80 mg PO HS@2100 01/04/23 04/01/23 Clopidogrel [Plavix] 75 mg PO DAILY@0900 01/04/23 04/01/23 Donepezil [Aricept] 10 mg PO HS@2100 01/04/23 04/01/23 Ezetimibe [Zetia] 10 mg PO DAILY@0900 01/04/23 04/01/23 Famotidine [Pepcid] 40 mg PO DAILY@0901/04/23 04/01/23 Fluticasone Propion/Salmeterol 1 puff INHALATION RT-DAILY@0901/04/23 04/01/23 [Fluticasone-Salmeterol 100-50] Isosorbide Mononitrate ER [Imdur] 30 mg PO DAILY@0901/04/23 04/01/23 allopurinoL [Zyloprim] 150 mg PO DAILY@0901/04/23 04/01/23 carvediloL [Coreg] 3.125 mg PO BID@0700,1700 01/04/23 04/01/23 Ranolazine [Ranexa] 500 mg PO BID@0900,2100 04/01/23 04/01/23 metOLazone [Zaroxolyn] 5 mg PO TUTH 04/01/23 04/01/23 Previous Rx's Medication Instructions Recorded Nitroglycerin Sl Tabs [Nitrostat] 0.4 mg SUBLINGUAL Q5M PRN tab 02/09/23 Dapagliflozin Propanediol [Farxiga] 10 mg PO DAILY 30 Days #30 tab 04/06/23 Furosemide [Lasix] 40 mg PO BID 30 Days #60 tab 04/06/23 Potassium Chloride [K-Tab ER] 20 meq PO DAILY 30 Days #30 tab 04/06/23 Allergies Allergy/AdvReac Type Severity Reaction Status Date / Time No Known Allergies Allergy Verified 04/01/23 20:09 Review of Systems ROS Other: All systems not noted in ROS Statement are negative. <Yulia Morris - Last Filed: 04/01/23 19:46> ROS Other: All systems not noted in ROS Statement are negative. <Rashaad Del Castillo - Last Filed: 04/06/23 17:06> ROS Statement: Those systems with pertinent positive or pertinent negative responses have been documented in the HPI. Past Medical History Past Medical History: Asthma, Cancer, CVA/TIA, Eye Disorder, GERD/Reflux, Hyperlipidemia, Hypertension, Myocardial Infarction (CO), Osteoarthritis (OA) Additional Past Medical History / Comment(s): CVA-NO RESIDUAL EFFECTS, MACULAR DEGENERATION -RT EYE, recent stress test, SOB w/exertion, skin cancer Last Myocardial Infarction Date:: 2006 History of Any Multi-Drug Resistant Organisms: None Reported Past Surgical History: Coronary Bypass/CABG, Heart Catheterization Additional Past Surgical History / Comment(s): BILAT CATARACTS REMOVED, CABG- 2006 X4, COLONOSCOPY Past Anesthesia/Blood Transfusion Reactions: No Reported Reaction Past Psychological History: No Psychological Hx Reported Smoking Status: Never smoker Past Alcohol Use History: Occasional Additional Past Alcohol Use History / Comment(s): 1 DRINK DAILY Past Drug Use History: None Reported - Past Family History Brother(s) Family Medical History: Cancer Additional Family Medical History / Comment(s): 3 BROTHERS WITH CANCER Sister(s) Family Medical History: Cancer <Yulia Morris - Last Filed: 04/01/23 19:46> General Exam General appearance: alert, in no apparent distress Head exam: Present: atraumatic, normocephalic, normal inspection Eye exam: Present: normal appearance, PERRL, EOMI. Absent: scleral icterus, conjunctival injection, periorbital swelling ENT exam: Present: normal exam, mucous membranes moist Neck exam: Present: normal inspection. Absent: tenderness, meningismus, lymphadenopathy Respiratory exam: Present: normal lung sounds bilaterally. Absent: respiratory distress, wheezes, rales, rhonchi, stridor Cardiovascular Exam: Present: regular rate, normal rhythm, normal heart sounds. Absent: systolic murmur, diastolic murmur, rubs, gallop, clicks GI/Abdominal exam: Present: soft, normal bowel sounds. Absent: distended, tenderness, guarding, rebound, rigid Extremities exam: Present: normal inspection, full ROM, normal capillary refill. Absent: tenderness, pedal edema, joint swelling, calf tenderness Back exam: Present: normal inspection Neurological exam: Present: alert, oriented X3, CN II-XII intact Psychiatric exam: Present: normal affect, normal mood Skin exam: Present: warm, dry, intact, normal color. Absent: rash <Yulia Morris - Last Filed: 04/01/23 19:46> General appearance: anxious Head exam: Present: atraumatic, normocephalic, normal inspection Eye exam: Present: normal appearance, PERRL, EOMI. Absent: scleral icterus, conjunctival injection, periorbital swelling ENT exam: Present: normal exam, mucous membranes moist Neck exam: Present: normal inspection. Absent: tenderness, meningismus, lymphadenopathy Respiratory exam: Present: normal lung sounds bilaterally. Absent: respiratory distress, wheezes, rales, rhonchi, stridor Cardiovascular Exam: Present: regular rate, normal rhythm, normal heart sounds. Absent: systolic murmur, diastolic murmur, rubs, gallop, clicks GI/Abdominal exam: Present: soft, normal bowel sounds. Absent: distended, tenderness, guarding, rebound, rigid Extremities exam: Present: normal inspection, full ROM, normal capillary refill. Absent: tenderness, pedal edema, joint swelling, calf tenderness Back exam: Present: normal inspection Neurological exam: Present: alert, oriented X3, CN II-XII intact Psychiatric exam: Present: normal affect, normal mood Skin exam: Present: warm, dry, intact, normal color. Absent: rash <Rashaad Del Castillo - Last Filed: 04/06/23 17:06> - General Exam Comments Initial Comments: Visual Physical Exam Vital signs reviewed General: Well-appearing, nontoxic, no acute distress. Head: Normocephalic, atraumatic Eyes: PERRLA, EOMI ENT: Airway patent Chest: Nonlabored breathing Skin: No visual rash, normal skin tone Neuro: Alert and oriented 3 Musculoskeletal: No gross abnormalities I performed the quick note portion of this exam, verbal signature Yulia Morris PA-C (Yulia Morris) Course <Rashaad Del Castillo - Last Filed: 04/06/23 17:06> Vital Signs 04/01/23 04/01/23 04/01/23 19:42 19:52 20:00 Temperature 98 F Pulse Rate 94 86 92 Respiratory 20 24 16 Rate Blood Pressure 111/72 116/76 116/76 O2 Sat by Pulse 90 L 94 L 95 Oximetry 04/01/23 04/01/23 04/01/23 21:00 22:00 23:00 Temperature Pulse Rate 84 89 87 Respiratory 19 18 12 Rate Blood Pressure 120/83 127/89 132/87 O2 Sat by Pulse 95 Oximetry 04/02/23 04/02/23 04/02/23 01:00 02:00 05:18 Temperature Pulse Rate 84 68 75 Respiratory 18 24 14 Rate Blood Pressure 119/70 119/70 126/79 O2 Sat by Pulse 96 94 L 94 L Oximetry 04/02/23 04/02/23 04/02/23 06:26 08:26 08:59 Temperature 98.1 F Pulse Rate 96 102 H Respiratory 16 20 Rate Blood Pressure 125/83 117/96 O2 Sat by Pulse 95 95 93 L Oximetry 04/02/23 04/02/23 11:26 17:12 Temperature Pulse Rate 88 90 Respiratory 19 18 Rate Blood Pressure 105/67 114/85 O2 Sat by Pulse 96 99 Oximetry - Reevaluation(s) Reevaluation #1: 04/01/23 20:03 Record is reviewed (Rashaad Del Castillo) Reevaluation #2: 04/01/23 20:03 Patient symptoms are relatively unchanged (Rashaad Del Castillo) Reevaluation #3: 04/01/23 20:03 Patient informed results questions answered (Rashaad Del Castillo) Reevaluation #4: 04/01/23 20:03 Was pt. sent in by a medical professional or institution (, PA, RESPITE COORDINATOR, urgent care, hospital, or [place] health [place] facility...) When possible be specific @ -no Did you speak to anyone other than the patient for history (EMS, parent, family, police, friend...)? What history was obtained from this source @ -no Did you review nursing and triage notes (agree or disagree)? Why? @ -agree Are old charts reviewed (outside hosp., previous admission, EMS record, old EKG, old radiological studies, urgent care reports/EKG's, [place] health [facility] facility records)? Report findings @ -yes Differential Diagnosis (chest pain, altered mental status, abdominal pain women, abdominal pain men, vaginal bleeding, weakness, fever, dyspnea, syncope, headache, dizziness, GI bleed, back pain, seizure, CVA, palpatations, mental health, musculoskeletal)? @ -prior EKG interpreted by me (3pts min.). @ -yes X-rays interpreted by me (1pt min.). @ -yes CT interpreted by me (1pt min.). @ -no U/S interpreted by me (1pt. min.). @ -no What testing was considered but not performed or refused? (CT, X-rays, U/S, labs)? Why? @ -none What meds were considered but not given or refused? Why? @ -none Did you discuss the management of the patient with other professionals (professionals i.e. , PA, RESPITE COORDINATOR, lab, RT, psych nurse, psychiatric social worker supervisor, business writer, teacher, humane officer, bilingual case manager)? Give summary @ -no Was smoking cessation discussed for >3mins.? @ -no Was critical care preformed (if so, how long)? @ -[id number] Were there social determinants of health that impacted care today? How? (Homelessness, low income, unemployed, alcoholism, drug addiction, transportation, low edu. Level, literacy, decrease access to med. care, usp, rehab)? @ -none Was there de-escalation of care discussed even if they declined (Discuss DNR or withdrawal of care, Hospice)? DNR status @ -no What co-morbidities impacted this encounter? (DM, HTN, Smoking, COPD, CAD, Cancer, CVA, ARF, Chemo, Hep., AIDS, mental health diagnosis, sleep apnea, morbid obesity)? @ -none Was patient admitted / discharged? Hospital course, mention meds given and route, prescriptions, significant lab abnormalities, going to OR and other pertinent info. @ - 82 female to the emergency department for evaluation today. Patient presents today for evaluation of worsening shortness of breath occasional chest pain symptoms progressively worsening, sent in by cardiology and patient will be admitted for further evaluation management Admitted Undiagnosed new problem with uncertain prognosis? @ -no Drug Therapy requiring intensive monitoring for toxicity (Heparin, Nitro, Insulin, Cardizem)? @ -no Were any procedures done? @ -no Diagnosis/symptom? @ -CHF, pleural effusion, chest pain Acute, or Chronic, or Acute on Chronic? @ -Acute Uncomplicated (without systemic symptoms) or Complicated (systemic symptoms)? @ -Complicated Side effects of treatment? @ -no Exacerbation, Progression, or Severe Exacerbation? @ -exacerbation Poses a threat to life or bodily function? How? (Chest pain, USA, CO, pneumonia, PE, COPD, DKA, ARF, appy, cholecystitis, CVA, Diverticulitis, Homicidal, Suicidal, threat to staff... and all critical care pts) @ -yes significant respiratory failure with hypoxia and pleural effusions with CHF (Rashaad Del Catsillo) Reevaluation #5: 04/01/23 20:03 Differential Dyspnea: Coronary syndrome, arrhythmia, tamponade, asthma, COPD, pulmonary embolism, pneumonia, pneumothorax, pulmonary effusion, anaphylaxis, diabetic ketoacidosis, flailed chest, pulmonary contusion, diaphragmatic rupture, anemia, neuromuscular, this is not meant to be an all-inclusive list. Differential Chest Pain: Stable Angina, Unstable Angina, STEMI, NSTEMI Aortic Dissection, Pneumothorax, Musculoskeletal, Esophageal Spasm GERD, Cholecystitis, Pancreatitis, Zoster, this is not meant to be an all-inclusive list. (Rashaad Del Castillo) - Consultations Consultation #1: Spoke with Dr. Bowers regarding the patient prior to patient's arrival (Rashaad Del Castillo) Consultation #2: Spoke with Dr. Pretty who agrees to admit this patient (Rashaad Del Castillo) EKG Findings - EKG Comments: EKG Findings:: EKG is H a fibrillation he denying QRS 1 6030 QTC 445 - EKG Results: EKG: interpreted by ERMD <Rashaad Del Castillo - Last Filed: 04/06/23 17:06> Medical Decision Making - Lab Data Result diagrams: 04/06/23 11:14 04/06/23 11:14 - EKG Data -: EKG Interpreted by Me (EKG is A. fib 89 QRS 163 QTC 445) - Radiology Data Radiology results: report reviewed (Chest x-ray shows CHF with bilateral pleural effusions), image reviewed <Rashaad Del Castillo - Last Filed: 04/06/23 17:06> - Medical Decision Making 82 female to the emergency department for evaluation today. Patient presents today for evaluation of worsening shortness of breath occasional chest pain symptoms progressively worsening, sent in by cardiology and patient will be admitted for further evaluation management (Rashaad Del Castillo) - Lab Data Lab Results 04/01/23 04/01/23 04/01/23 Range/Units 20:08 20:08 20:08 WBC 7.5 (3.8-10.6) k/uL RBC 3.27 L (4.30-5.90) m/uL Hgb 9.3 L D (13.0-17.5) gm/dL Hct 29.4 L (39.0-53.0) % MCV 90.0 (80.0-100.0) fL MCH 28.6 (25.0-35.0) pg MCHC 31.7 (31.0-37.0) g/dL RDW 16.5 H (11.5-15.5) % Plt Count 316 (150-450) k/uL MPV 7.7 Neutrophils % 75 % Lymphocytes % 7 % Monocytes % 13 % Eosinophils % 2 % Basophils % 0 % Neutrophils # 5.6 (1.3-7.7) k/uL Lymphocytes # 0.5 L (1.0-4.8) k/uL Monocytes # 0.9 (0-1.0) k/uL Eosinophils # 0.1 (0-0.7) k/uL Basophils # 0.0 (0-0.2) k/uL Hypochromasia Marked Poikilocytosis Moderate Anisocytosis Slight PT 31.8 H (10.0-12.5) sec INR 3.2 H (<1.2) APTT 31.7 H (22.0-30.0) sec Sodium 139 (137-145) mmol/L Potassium 3.4 L (3.5-5.1) mmol/L Chloride 98 (98-107) mmol/L Carbon Dioxide 27 (22-30) mmol/L Anion Gap 14 mmol/L BUN 56 H (9-20) mg/dL Creatinine 2.24 H (0.66-1.25) mg/dL Est GFR (CKD-EPI)AfAm 31 (>60 ml/min/1.73 sqM) Est GFR (CKD-EPI)NonAf 27 (>60 ml/min/1.73 sqM) Glucose 113 H (74-99) mg/dL Calcium 9.7 (8.4-10.2) mg/dL Total Bilirubin 0.6 (0.2-1.3) mg/dL AST 24 (17-59) U/L ALT 20 (4-49) U/L Alkaline Phosphatase 82 (38-126) U/L Troponin I (0.000-0.034) ng/mL NT-Pro-B Natriuret Pep 6400 pg/mL Total Protein 6.0 L (6.3-8.2) g/dL Albumin 3.7 (3.5-5.0) g/dL Influenza Type A (PCR) (Not Detectd) Influenza Type B (PCR) (Not Detectd) RSV (PCR) (Not Detectd) SARS-CoV-2 (PCR) (Not Detectd) 04/01/23 04/01/23 04/01/23 Range/Units 20:08 20:08 23:18 WBC (3.8-10.6) k/uL RBC (4.30-5.90) m/uL Hgb (13.0-17.5) gm/dL Hct (39.0-53.0) % MCV (80.0-100.0) fL MCH (25.0-35.0) pg MCHC (31.0-37.0) g/dL RDW (11.5-15.5) % Plt Count (150-450) k/uL MPV Neutrophils % % Lymphocytes % % Monocytes % % Eosinophils % % Basophils % % Neutrophils # (1.3-7.7) k/uL Lymphocytes # (1.0-4.8) k/uL Monocytes # (0-1.0) k/uL Eosinophils # (0-0.7) k/uL Basophils # (0-0.2) k/uL Hypochromasia Poikilocytosis Anisocytosis PT (10.0-12.5) sec INR (<1.2) APTT (22.0-30.0) sec Sodium (137-145) mmol/L Potassium (3.5-5.1) mmol/L Chloride (98-107) mmol/L Carbon Dioxide (22-30) mmol/L Anion Gap mmol/L BUN (9-20) mg/dL Creatinine (0.66-1.25) mg/dL Est GFR (CKD-EPI)AfAm (>60 ml/min/1.73 sqM) Est GFR (CKD-EPI)NonAf (>60 ml/min/1.73 sqM) Glucose (74-99) mg/dL Calcium (8.4-10.2) mg/dL Total Bilirubin (0.2-1.3) mg/dL AST (17-59) U/L ALT (4-49) U/L Alkaline Phosphatase (38-126) U/L Troponin I 0.049 H* 0.048 H* (0.000-0.034) ng/mL NT-Pro-B Natriuret Pep pg/mL Total Protein (6.3-8.2) g/dL Albumin (3.5-5.0) g/dL Influenza Type A (PCR) Not Detected (Not Detectd) Influenza Type B (PCR) Not Detected (Not Detectd) RSV (PCR) Not Detected (Not Detectd) SARS-CoV-2 (PCR) Not Detected (Not Detectd) 04/02/23 04/02/23 04/02/23 Range/Units 03:19 03:19 03:19 WBC 6.0 (3.8-10.6) k/uL RBC 3.23 L (4.30-5.90) m/uL Hgb 8.9 L (13.0-17.5) gm/dL Hct 29.0 L (39.0-53.0) % MCV 89.8 (80.0-100.0) fL MCH 27.6 (25.0-35.0) pg MCHC 30.8 L (31.0-37.0) g/dL RDW 16.5 H (11.5-15.5) % Plt Count 255 (150-450) k/uL MPV 9.2 Neutrophils % 75 % Lymphocytes % 10 % Monocytes % 9 % Eosinophils % 2 % Basophils % 0 % Neutrophils # 4.5 (1.3-7.7) k/uL Lymphocytes # 0.6 L (1.0-4.8) k/uL Monocytes # 0.5 (0-1.0) k/uL Eosinophils # 0.1 (0-0.7) k/uL Basophils # 0.0 (0-0.2) k/uL Hypochromasia Marked Poikilocytosis Moderate Anisocytosis Slight PT (10.0-12.5) sec INR (<1.2) APTT (22.0-30.0) sec Sodium 137 (137-145) mmol/L Potassium 3.1 L (3.5-5.1) mmol/L Chloride 100 (98-107) mmol/L Carbon Dioxide 26 (22-30) mmol/L Anion Gap 11 mmol/L BUN 55 H (9-20) mg/dL Creatinine 2.00 H (0.66-1.25) mg/dL Est GFR (CKD-EPI)AfAm 35 (>60 ml/min/1.73 sqM) Est GFR (CKD-EPI)NonAf 31 (>60 ml/min/1.73 sqM) Glucose 102 H (74-99) mg/dL Calcium 9.4 (8.4-10.2) mg/dL Total Bilirubin 0.7 (0.2-1.3) mg/dL AST 24 (17-59) U/L ALT 19 (4-49) U/L Alkaline Phosphatase 83 (38-126) U/L Troponin I 0.047 H* (0.000-0.034) ng/mL NT-Pro-B Natriuret Pep pg/mL Total Protein 5.6 L (6.3-8.2) g/dL Albumin 3.3 L (3.5-5.0) g/dL Influenza Type A (PCR) (Not Detectd) Influenza Type B (PCR) (Not Detectd) RSV (PCR) (Not Detectd) SARS-CoV-2 (PCR) (Not Detectd) 04/02/23 Range/Units 03:19 WBC (3.8-10.6) k/uL RBC (4.30-5.90) m/uL Hgb (13.0-17.5) gm/dL Hct (39.0-53.0) % MCV (80.0-100.0) fL MCH (25.0-35.0) pg MCHC (31.0-37.0) g/dL RDW (11.5-15.5) % Plt Count (150-450) k/uL MPV Neutrophils % % Lymphocytes % % Monocytes % % Eosinophils % % Basophils % % Neutrophils # (1.3-7.7) k/uL Lymphocytes # (1.0-4.8) k/uL Monocytes # (0-1.0) k/uL Eosinophils # (0-0.7) k/uL Basophils # (0-0.2) k/uL Hypochromasia Poikilocytosis Anisocytosis PT 29.6 H (10.0-12.5) sec INR 3.0 H (<1.2) APTT (22.0-30.0) sec Sodium (137-145) mmol/L Potassium (3.5-5.1) mmol/L Chloride (98-107) mmol/L Carbon Dioxide (22-30) mmol/L Anion Gap mmol/L BUN (9-20) mg/dL Creatinine (0.66-1.25) mg/dL Est GFR (CKD-EPI)AfAm (>60 ml/min/1.73 sqM) Est GFR (CKD-EPI)NonAf (>60 ml/min/1.73 sqM) Glucose (74-99) mg/dL Calcium (8.4-10.2) mg/dL Total Bilirubin (0.2-1.3) mg/dL AST (17-59) U/L ALT (4-49) U/L Alkaline Phosphatase (38-126) U/L Troponin I (0.000-0.034) ng/mL NT-Pro-B Natriuret Pep pg/mL Total Protein (6.3-8.2) g/dL Albumin (3.5-5.0) g/dL Influenza Type A (PCR) (Not Detectd) Influenza Type B (PCR) (Not Detectd) RSV (PCR) (Not Detectd) SARS-CoV-2 (PCR) (Not Detectd) Critical Care Time Critical Care Time: Yes Total Critical Care Time: 31 <Rashaad Del Castillo - Last Filed: 04/06/23 17:06> Disposition <Yulia Morris - Last Filed: 04/01/23 19:46> Is patient prescribed a controlled substance at d/c from ED?: No Time of Disposition: 20:15 <Rashaad Del Castillo - Last Filed: 04/06/23 17:06> Clinical Impression: Chest pain Disposition: ADMITTED IP TO THIS HOSP Condition: Good
[2023-04-01] MEDS ORDERED: NALOXONE 0.4 MG/ML 1 ML VIAL IV PRN (20:14)
[2023-04-01] MEDS ORDERED: ONDANSETRON 4 MG/2 ML VIAL IVP PRN (20:14)
[2023-04-01] MEDS ORDERED: MORPHINE SULFATE 4 MG/ML SYRINGE IV PRN (20:14)
[2023-04-01 20:31] LABS: Anisocytosis Slight; Basophils % (A) 0 %; Eosinophils # (A) 0.1 k/uL (0-0.7); Eosinophils % (A) 2 %; HCT 29.4 % (39.0-53.0); Hypochromasia Marked; Lymphocytes # (A) 0.5 k/uL (1.0-4.8); Lymphocytes % (A) 7 %; MCH 28.6 pg (25.0-35.0); MCHC 31.7 g/dL (31.0-37.0); Mean Platelet Volume 7.7; Monocytes # (A) 0.9 k/uL (0-1.0); Monocytes % (A) 13 %; Neutrophils # (A) 5.6 k/uL (1.3-7.7); Neutrophils % (A) 75 %; Platelet Count 316 k/uL (150-450); Poikilocytosis Moderate; RBC 3.27 m/uL (4.30-5.90); RDW 16.5 % (11.5-15.5); WBC 7.5 k/uL (3.8-10.6)
--- NOTE | 2023-04-01 20:35 | XR ---
EXAMINATION TYPE: XR chest 2V DATE OF EXAM: 04/01/2023 COMPARISON: 04/01/2013 HISTORY: 82 year-old male shortness of breath TECHNIQUE: PA and lateral views FINDINGS: Sternotomy wires are present with post-CABG clips. Heart mild to moderately enlarged. Interstitial pr ominence. Moderate left and small right pleural effusions. IMPRESSION: Cardiomegaly with moderate left and small right pleural effusions. Adjacent atelectasis and/or consol idation. Correlate for CHF as a possible etiology.
[2023-04-01 20:46] LABS: INR 3.2 (<1.2); Partial Thromboplastin Time 31.7 sec (22.0-30.0); Prothrombin Time 31.8 sec (10.0-12.5)
[2023-04-01 20:56] LABS: ALT 20 U/L (4-49); AST 24 U/L (17-59); African American GFR (CKD) 31 (>60 ml/min/1.73 sqM); Albumin 3.7 g/dL (3.5-5.0); Alkaline Phosphatase 82 U/L (38-126); Anion Gap 14 mmol/L; Blood Urea Nitrogen 56 mg/dL (9-20); Calcium 9.7 mg/dL (8.4-10.2); Carbon Dioxide 27 mmol/L (22-30); Chloride 98 mmol/L (98-107); Glucose 113 mg/dL (74-99); Non-African American GFR(CKD) 27 (>60 ml/min/1.73 sqM); Potassium 3.4 mmol/L (3.5-5.1); Sodium 139 mmol/L (137-145); Total Bilirubin 0.6 mg/dL (0.2-1.3)
[2023-04-01 21:03] LABS: NT-Pro-B-Type Natriuretic Pept 6400 pg/mL
[2023-04-01 21:15] LABS: HGB 9.3 gm/dL (13.0-17.5)
[2023-04-01] MEDS ORDERED: NITROGLYCERIN SL TABS 0.4 MG TAB SUBLINGUAL PRN (21:32)
[2023-04-02 03:39] LABS: Anisocytosis Slight; Basophils % (A) 0 %; Eosinophils # (A) 0.1 k/uL (0-0.7); Eosinophils % (A) 2 %; HGB 8.9 gm/dL (13.0-17.5); Hypochromasia Marked; Lymphocytes # (A) 0.6 k/uL (1.0-4.8); Lymphocytes % (A) 10 %; MCH 27.6 pg (25.0-35.0); MCHC 30.8 g/dL (31.0-37.0); MCV 89.8 fL (80.0-100.0); Mean Platelet Volume 9.2; Monocytes # (A) 0.5 k/uL (0-1.0); Monocytes % (A) 9 %; Neutrophils # (A) 4.5 k/uL (1.3-7.7); Neutrophils % (A) 75 %; Platelet Count 255 k/uL (150-450); Poikilocytosis Moderate; RBC 3.23 m/uL (4.30-5.90); RDW 16.5 % (11.5-15.5)
[2023-04-02 03:51] LABS: ALT 19 U/L (4-49); AST 24 U/L (17-59); African American GFR (CKD) 35 (>60 ml/min/1.73 sqM); Albumin 3.3 g/dL (3.5-5.0); Alkaline Phosphatase 83 U/L (38-126); Anion Gap 11 mmol/L; Blood Urea Nitrogen 55 mg/dL (9-20); Calcium 9.4 mg/dL (8.4-10.2); Carbon Dioxide 26 mmol/L (22-30); Chloride 100 mmol/L (98-107); Glucose 102 mg/dL (74-99); Non-African American GFR(CKD) 31 (>60 ml/min/1.73 sqM); Potassium 3.1 mmol/L (3.5-5.1); Sodium 137 mmol/L (137-145); Total Bilirubin 0.7 mg/dL (0.2-1.3); Total Protein 5.6 g/dL (6.3-8.2)
[2023-04-02 04:01] LABS: Prothrombin Time 29.6 sec (10.0-12.5)
[2023-04-02] MEDS: carvediloL 3.125 MG TAB PO SCH ×2 (06:26→17:17)
[2023-04-02] MEDS: ISOSORBIDE MONONITRATE ER 30 MG TAB.ER.24H PO SCH (08:22)
[2023-04-02] MEDS: FAMOTIDINE 20 MG TAB PO SCH (08:22)
[2023-04-02] MEDS: EZETIMIBE 10 MG TAB PO SCH (08:23)
[2023-04-02] MEDS: CLOPIDOGREL 75 MG TAB PO SCH (08:24)
[2023-04-02] MEDS: SYMBICORT 80-4.5 MCG INHALER INHALATION SCH ×2 (08:58→21:35)
[2023-04-02] MEDS ORDERED: ASPIRIN 81 MG PO SCH (09:00)
[2023-04-02] MEDS: RANOLAZINE 500 MG TAB.ER.12H PO SCH ×2 (09:09→20:18)
--- NOTE | 2023-04-02 10:01 | US ---
EXAMINATION TYPE: US chest DATE OF EXAM: 04/02/2023 COMPARISON: XR 04/01/2023 CLINICAL INDICATION: Male, 82 years old with history of Left pleural effusion; Left pleural effusion. TECHNIQUE: Targeted ultrasound of the posterior lower bilateral hemithoraces EXAM MEASUREMENTS: Right Pleural Effusion pocket size: 2.0 cm. Not marked due to small fluid pocket. Pocket appears sli ghtly complex. Left Pleural Effusion pocket size: 10.0 cm Left skin surface to fluid distance: 3.4 cm Right side NOT marked for possible thoracentesis outside the dept. Left side marked for possible thoracentesis outside the dept. Pulmonologists are able to review the images in the patient?s EMR. IMPRESSIONS: Moderate size left pleural effusion with trace right pleural effusion.
[2023-04-02] MEDS: DAPAGLIFLOZIN PROPANEDIOL 10 MG TABLET PO SCH (11:35)
[2023-04-02] MEDS ORDERED: POTASSIUM CHLORIDE ER 20 MEQ TAB.ER PO STA (12:09)
--- NOTE | 2023-04-02 12:17 | P.CNPUL ---
History of Present Illness Consult date: 04/02/23 Requesting physician: Bridget Pretty Reason for consult: dyspnea, hypoxemia, pleural effusion, abnormal CXR/CT Chief complaint: Shortness of breath. History of present illness: Pulmonary consult dated 04/02/2023. This is a 82-year-old male, who was seen in the emergency department, trauma room #2. The patient presented to the emergency department on April 01, complaining of shortness of breath. The patient states that his shortness of breath has been getting worse over the last couple days prior to admission. He was seen by cardiology in the emergency department, and they consulted us, because of the left-sided pleural effusion. The patient does have an extensive cardiac history. His medical history includes asthma, CVA, GERD, hyperlipidemia, hypertension, myocardial infarction, macular degeneration, and coronary artery bypass grafting. He was a lifelong nonsmoker. He has a s ignificant history of valvular heart disease as well. White count 6, hemoglobin 8.9, hematocrit 29, with a normal platelet count. PT is 29.6 with an INR 3. Sodium 137, potassium 3.1, chlorides 100, CO2 26, BUN 55, and creatinine 2. Troponins were 0.049, 0.048, and 0.047. His N-terminal proBNP was elevated at 6400. Chest x-ray showed cardiomegaly, with a moderate left-sided pleural effusion and a small right-sided pleural effusion. Ultrasound of the chest reveals a very small right-sided pleural effusion, too small to ruiz, and a left-sided pleural effusion, which is 10 cm in size. Review of Systems REVIEW OF SYSTEMS: CONSTITUTIONAL: [Negative.] NEUROLOGIC: [ Negative.] HEENT: [ Negative.] CARDIAC: [Negative.] PULMONARY: Shortness of breath, progressive. GI: [Negative.] : [Negative.] RHEUMATOLOGIC: [ Negative.] IMMUNOLOGIC: [ Negative.] ENDOCRINE: [Negative. ] DERMATOLOGIC: [Negative.] Past Medical History Past Medical History: Asthma, Cancer, CVA/TIA, Eye Disorder, GERD/Reflux, Hyperlipidemia, Hypertension, Myocardial Infarction ([place]), Osteoarthritis (OA) Additional Past Medical History / Comment(s): CVA-NO RESIDUAL EFFECTS, MACULAR DEGENERATION -RT EYE, recent stress test, SOB w/exertion, skin cancer Last Myocardial Infarction Date:: 2006 History of Any Multi-Drug Resistant Organisms: None Reported Past Surgical History: Coronary Bypass/CABG, Heart Catheterization Additional Past Surgical History / Comment(s): BILAT CATARACTS REMOVED, CABG- 2006 X4, COLONOSCOPY Past Anesthesia/Blood Transfusion Reactions: No Reported Reaction Past Psychological History: No Psychological Hx Reported Smoking Status: Never smoker Past Alcohol Use History: Occasional Additional Past Alcohol Use History / Comment(s): 1 DRINK DAILY Past Drug Use History: None Reported - Past Family History Brother(s) Family Medical History: Cancer Additional Family Medical History / Comment(s): 3 BROTHERS WITH CANCER Sister(s) Family Medical History: Cancer Medications and Allergies Home Medications Medication Instructions Recorded Confirmed Type Loratadine [Claritin] 10 mg PO HS@209906/21/17 04/01/23 History Warfarin [Coumadin] 5 mg PO DAILY@1800 06/21/17 04/01/23 History Albuterol Inhaler [Ventolin Hfa 1 - 2 puff INHALATION RT-Q6H PRN 04/18/18 04/01/23 History Inhaler] Vit C/E/Zn/Coppr/Lutein/Zeaxan 1 cap PO BID@0900,209904/18/18 04/01/23 History [Preservision Areds 2 Softgel] Aspirin 81 mg PO DAILY@89901/04/23 04/01/23 History Atorvastatin [Lipitor] 80 mg PO HS@209901/04/23 04/01/23 History Clopidogrel [Plavix] 75 mg PO DAILY@89901/04/23 04/01/23 History Donepezil [Aricept] 10 mg PO HS@209901/04/23 04/01/23 History Ezetimibe [Zetia] 10 mg PO DAILY@89901/04/23 04/01/23 History Famotidine [Pepcid] 40 mg PO DAILY@89901/04/23 04/01/23 History Fluticasone Propion/Salmeterol 1 puff INHALATION RT-DAILY@89901/04/23 04/01/23 History [Fluticasone-Salmeterol 100-50] Isosorbide Mononitrate ER [Imdur] 30 mg PO DAILY@89901/04/23 04/01/23 History allopurinoL [Zyloprim] 150 mg PO DAILY@00 01/04/23 04/01/23 History carvediloL [Coreg] 3.125 mg PO BID@0700,1700 01/04/23 04/01/23 History Nitroglycerin Sl Tabs [Nitrostat] 0.4 mg SUBLINGUAL Q5M PRN tab 02/09/23 04/01/23 Rx Ciprofloxacin HCl [Cipro] 500 mg PO BID 04/01/23 04/01/23 History Furosemide [Lasix] 40 mg PO DAILY@0900 04/01/23 04/01/23 History Ranolazine [Ranexa] 500 mg PO BID@0900,2100 04/01/23 04/01/23 History metOLazone [Zaroxolyn] 5 mg PO TUTH 04/01/23 04/01/23 History Allergies Allergy/AdvReac Type Severity Reaction Status Date / Time No Known Allergies Allergy Verified 04/01/23 20:09 Physical Exam Osteopathic Statement: *. No significant issues noted on an osteopathic structural exam other than those noted in the History and Physical/Consult. Vitals: Vital Signs Temp Pulse Resp BP Pulse Ox 04/02/23 11:26 88 19 105/67 96 04/02/23 08:59 93 L 04/02/23 08:26 98.1 F 102 H 20 117/96 95 04/02/23 06:26 96 16 125/83 95 04/02/23 05:18 75 14 126/79 94 L 04/02/23 02:00 68 24 119/70 94 L 04/02/23 01:00 84 18 119/70 96 04/01/23 23:00 87 12 132/87 04/01/23 22:00 89 18 127/89 04/01/23 21:00 84 19 120/83 95 04/01/23 20:00 92 16 116/76 95 04/01/23 19:52 86 24 116/76 94 L 04/01/23 19:42 98 F 94 20 111/72 90 L Intake and Output 04/01/23 04/02/23 04/02/23 22:59 06:59 14:59 Other: Weight 86.183 kg No acute distress, oriented 3. Currently on 3 L nasal cannula. HEENT examination is grossly unremarkable. Mucous membranes are moist. No oral lesions. Neck supple. Full range of motion. No adenopathy thyromegaly or neck vein distention. Cardiovascular examination reveals an irregular rhythm and rate. S1-S2 normal. No S3 or S4. No discernible murmur noted. Heart rate 102 bpm. Lungs reveal diminished breath sounds and dullness at the left base. No rhonchi or wheezes. Abdomen soft bowel sounds are heard. No masses or tenderness. Extremities are intact. No cyanosis clubbing or edema. Skin is without rash or lesion. Neurologic examination is brief but nonfocal. Results - Laboratory Findings CBC and BMP: 04/02/23 03:19 04/02/23 03:19 PT/INR, D-dimer PT 29.6 sec (10.0-12.5) H 04/02/23 03:19 INR 3.0 (<1.2) H 04/02/23 03:19 Abnormal lab findings: Abnormal Labs 04/01/23 04/01/23 04/01/23 20:08 20:08 20:08 RBC 3.27 L Hgb 9.3 L D Hct 29.4 L MCHC RDW 16.5 H Lymphocytes # 0.5 L PT 31.8 H INR 3.2 H APTT 31.7 H Potassium 3.4 L BUN 56 H Creatinine 2.24 H Glucose 113 H Troponin I Total Protein 6.0 L Albumin 04/01/23 04/01/23 04/02/23 20:08 23:18 03:19 RBC Hgb Hct MCHC RDW Lymphocytes # PT INR APTT Potassium BUN Creatinine Glucose Troponin I 0.049 H* 0.048 H* 0.047 H* Total Protein Albumin 04/02/23 04/02/23 04/02/23 03:19 03:19 03:19 RBC 3.23 L Hgb 8.9 L Hct 29.0 L MCHC 30.8 L RDW 16.5 H Lymphocytes # 0.6 L PT 29.6 H INR 3.0 H APTT Potassium 3.1 L BUN 55 H Creatinine 2.00 H Glucose 102 H Troponin I Total Protein 5.6 L Albumin 3.3 L - Diagnostic Findings Chest x-ray: image reviewed Assessment and Plan Assessment: Progressive shortness of breath, in part related to left-sided pleural effusion and chronic atrial fibrillation. History of chronic atrial fibrillation. History of myocardial infarction. History of valvular heart disease. History of previous bypass grafting. History of CVA. History of gastroesophageal reflux disease. History of hyperlipidemia. History of hypertension. History of asthma. Plan: Plan dated 04/02/2023. Cardiology is holding the patient's Coumadin. Eventually, the patient will benefit from a thoracentesis. We will check an INR and PTT in the morning. I explained the process to the patient. He understands and agrees to go forward with thoracentesis, once his INR is in a safe range. No additional recommendations are made. The right-sided effusion is very small. Time with Patient: Greater than 30
[2023-04-02] MEDS: FUROSEMIDE 10 MG/ML 4 ML VIAL IV SCH ×3 (12:18→23:44)
--- NOTE | 2023-04-02 13:37 | P.CRDCN ---
History of Present Illness History of present illness: HISTORY OF PRESENT ILLNESS: This is a 82-year-old male with a past medical history significant for coronary artery disease with previous CABG and subsequent stenting, ischemic cardiomyopathy, hypertension, hyperlipidemia, ascending aortic aneurysm, valvular heart disease, persistent atrial fibrillation, and asthma. Patient follows in the office with Dr. Bowers and Dr. Salgado. We have been asked to see the patient in consultation for congestive heart failure. Patient examined at the bedside in the emergency room. Patient presented to the hospital with a chief complaint of shortness of breath and increased lower extremity edema. Patient states he was sent into the hospital yesterday by Dr. Bowers. The patient currently denies any chest pain or pressure. He does report shortness of breath and appears dyspneic on evaluation. * EKG reveals atrial fibrillation with controlled ventricular rate * Chest xray cardiomegaly with moderate left and small right pleural effusions. Adjacent atelectasis and/or consolidation. * Laboratory data: WBC 6.0. Hemoglobin 8.9. Platelet count 255. INR 3.2. Sodium 137. Potassium 3.1. BUN 55. Creatinine 2.0. Troponin 0.049. 0.048. 0.047. ProBNP 6400. * Current home cardiac medications include Zaroxolyn 5 mg on Saturday and , Coumadin 5 mg daily, Ranexa 500 mg twice a day, Imdur 30 mg daily, Lasix 40 mg daily, Zetia 10 mg daily, carvedilol 3.125 mg twice a day, Plavix 75 mg daily, atorvastatin 80 mg at night, and aspirin 81 mg daily * Most recent echocardiogram obtained in October 2022 revealed ejection fraction 45%, moderate LVH, [id number] AR, moderate to severe as, moderate MR, moderate TR * Patient underwent TORY in December 2022 revealing moderate aortic stenosis, moderate aortic regurgitation, moderate mitral regurgitation, and moderate to severe tricuspid regurgitation * Cardiac catheterization history: January 2023 revealing 90% distal left main stenosis, 90% OM1 stenosis, 95% stenosis OM 2, 100% proximal LAD, and known 100% RCA stenosis. Only patent graft MOREIRA to the mid LAD/diagonal. Patient underwent Impella assisted stenting of the left main into circumflex, PCI of circumflex into OM 2, and PCI to OM1 REVIEW OF SYSTEMS: At the time of my exam: CONSTITUTIONAL: Denies fever or chills. HEENT: Denies blurred vision, vision changes, or eye pain. Denies hemoptysis CARDIOVASCULAR: Denies chest pain. + orthopnea. + PND. Denies palpitations RESPIRATORY: Reports shortness of breath. GASTROINTESTINAL: Denies abdominal pain. Denies nausea or vomiting. HEMATOLOGIC: Denies bleeding disorders. GENITOURINARY: Denies any blood in urine. SKIN: Denies pruitis. Denies rash. PHYSICAL EXAM: VITAL SIGNS: Reviewed. GENERAL: Well-developed in no acute distress. HEENT: Head is normocephalic. Pupils are equal, round. Sclerae anicteric. Mucous membranes of the mouth are moist. Neck supple. No JVD or thyromegaly LUNGS: Respirations even and unlabored. Lungs with crackles and diminished breath sounds. Worse on the left. HEART: Irregular rate and rhythm. S1 and S2 heard. Systolic murmur noted ABDOMEN: Soft. Nondistended. Nontender. EXTREMITIES: Normal range of motion. No clubbing or cyanosis. Peripheral pulses intact. 3+ bilateral lower extremity edema NEUROLOGIC: Awake and alert. Oriented x 3. ASSESSMENT: Shortness of breath Acute on chronic heart failure with reduced ejection fraction, 45% Coronary artery disease with previous four-vessel CABG and recent stenting in January 2023, as above Valvular heart disease including moderate aortic stenosis, moderate aortic regurgitation, moderate mitral regurgitation, and moderate to severe tricuspid regurgitation Persistent atrial fibrillation with controlled ventricular rate Bilateral pleural effusions, left greater than right Acute kidney injury, creatinine 2.24 admission Abnormal troponins, flat, not suggestive of acute coronary syndrome Hypertension Hyperlipidemia Ascending aortic aneurysm History of asthma PLAN: Obtain 2-D echo to assess cardiac structure and function Begin IV Lasix 40 mg every 8 hours Daily weights, accurate I&O, and monitoring of kidney function Resume home cardiac medications Add Farxiga 10mg daily Discontinue aspirin. Continue Plavix. Hold Coumadin. Continue to monitor INR. Pulmonary consulted for evaluation of pleural effusion with possible thoracentesis Further recommendations pending patient's course Nurse practitioner note has been reviewed by physician. Signing provider agrees with the documented findings, assessment, and plan of care. Past Medical History Past Medical History: Asthma, Cancer, CVA/TIA, Eye Disorder, GERD/Reflux, Hyperlipidemia, Hypertension, Myocardial Infarction ([place]), Osteoarthritis (OA) Additional Past Medical History / Comment(s): CVA-NO RESIDUAL EFFECTS, MACULAR DEGENERATION -RT EYE, recent stress test, SOB w/exertion, skin cancer Last Myocardial Infarction Date:: 2006 History of Any Multi-Drug Resistant Organisms: None Reported Past Surgical History: Coronary Bypass/CABG, Heart Catheterization Additional Past Surgical History / Comment(s): BILAT CATARACTS REMOVED, CABG- 2006 X4, COLONOSCOPY Past Anesthesia/Blood Transfusion Reactions: No Reported Reaction Past Psychological History: No Psychological Hx Reported Smoking Status: Never smoker Past Alcohol Use History: Occasional Additional Past Alcohol Use History / Comment(s): 1 DRINK DAILY Past Drug Use History: None Reported - Past Family History Brother(s) Family Medical History: Cancer Additional Family Medical History / Comment(s): 3 BROTHERS WITH CANCER Sister(s) Family Medical History: Cancer Medications and Allergies Home Medications Medication Instructions Recorded Confirmed Type Loratadine [Claritin] 10 mg PO HS@209906/21/17 04/01/23 History Warfarin [Coumadin] 5 mg PO DAILY@1800 06/21/17 04/01/23 History Albuterol Inhaler [Ventolin Hfa 1 - 2 puff INHALATION RT-Q6H PRN 04/18/18 04/01/23 History Inhaler] Vit C/E/Zn/Coppr/Lutein/Zeaxan 1 cap PO BID@0900,209904/18/18 04/01/23 History [Preservision Areds 2 Softgel] Aspirin 81 mg PO DAILY@0900 01/04/23 04/01/23 History Atorvastatin [Lipitor] 80 mg PO HS@209901/04/23 04/01/23 History Clopidogrel [Plavix] 75 mg PO DAILY@89901/04/23 04/01/23 History Donepezil [Aricept] 10 mg PO HS@209901/04/23 04/01/23 History Ezetimibe [Zetia] 10 mg PO DAILY@0901/04/23 04/01/23 History Famotidine [Pepcid] 40 mg PO DAILY@0900 01/04/23 04/01/23 History Fluticasone Propion/Salmeterol 1 puff INHALATION RT-DAILY@0900 01/04/23 04/01/23 History [Fluticasone-Salmeterol 100-50] Isosorbide Mononitrate ER [Imdur] 30 mg PO DAILY@0900 01/04/23 04/01/23 History allopurinoL [Zyloprim] 150 mg PO DAILY@0900 01/04/23 04/01/23 History carvediloL [Coreg] 3.125 mg PO BID@0700,1700 01/04/23 04/01/23 History Nitroglycerin Sl Tabs [Nitrostat] 0.4 mg SUBLINGUAL Q5M PRN tab 02/09/23 04/01/23 Rx Ciprofloxacin HCl [Cipro] 500 mg PO BID 04/01/23 04/01/23 History Furosemide [Lasix] 40 mg PO DAILY@0900 04/01/23 04/01/23 History Ranolazine [Ranexa] 500 mg PO BID@0900,2100 04/01/23 04/01/23 History metOLazone [Zaroxolyn] 5 mg PO TUTH 04/01/23 04/01/23 History Allergies Allergy/AdvReac Type Severity Reaction Status Date / Time No Known Allergies Allergy Verified 04/01/23 20:09 Physical Exam Vitals: Vital Signs Temp Pulse Resp BP Pulse Ox 04/02/23 11:26 88 19 105/67 96 04/02/23 08:59 93 L 04/02/23 08:26 98.1 F 102 H 20 117/96 95 04/02/23 06:26 96 16 125/83 95 04/02/23 05:18 75 14 126/79 94 L 04/02/23 02:00 68 24 119/70 94 L 04/02/23 01:00 84 18 119/70 96 04/01/23 23:00 87 12 132/87 04/01/23 22:00 89 18 127/89 04/01/23 21:00 84 19 120/83 95 04/01/23 20:00 92 16 116/76 95 04/01/23 19:52 86 24 116/76 94 L 04/01/23 19:42 98 F 94 20 111/72 90 L Intake and Output 04/01/23 04/02/23 04/02/23 22:59 06:59 14:59 Other: Weight 86.183 kg Results 04/02/23 03:19 04/02/23 03:19 Cardiac Enzymes 04/01/23 04/01/2304/01/23 Range/Units 20:08 20:08 23:18 AST 24 (17-59) U/L Troponin I 0.049 H* 0.048 H* (0.000-0.034) ng/mL 04/02/23 04/02/23 Range/Units 03:19 03:19 AST 24 (17-59) U/L Troponin I 0.047 H* (0.000-0.034) ng/mL Coagulation 04/01/23 04/02/23 Range/Units 20:08 03:19 PT 31.8 H 29.6 H (10.0-12.5) sec APTT 31.7 H (22.0-30.0) sec CBC 04/01/23 04/02/23 Range/Units 20:08 03:19 WBC 7.5 6.0 (3.8-10.6) k/uL RBC 3.27 L 3.23 L (4.30-5.90) m/uL Hgb 9.3 L D 8.9 L (13.0-17.5) gm/dL Hct 29.4 L 29.0 L (39.0-53.0) % Plt Count 316 255 (150-450) k/uL Comprehensive Metabolic Panel 04/01/23 04/02/23 Range/Units 20:08 03:19 Sodium 139 137 (137-145) mmol/L Potassium 3.4 L 3.1 L (3.5-5.1) mmol/L Chloride 98 100 (98-107) mmol/L Carbon Dioxide 27 26 (22-30) mmol/L BUN 56 H 55 H (9-20) mg/dL Creatinine 2.24 H 2.00 H (0.66-1.25) mg/dL Glucose 113 H 102 H (74-99) mg/dL Calcium 9.7 9.4 (8.4-10.2) mg/dL AST 24 24 (17-59) U/L ALT 20 19 (4-49) U/L Alkaline Phosphatase 82 83 (38-126) U/L Total Protein 6.0 L 5.6 L (6.3-8.2) g/dL Albumin 3.7 3.3 L (3.5-5.0) g/dL Current Medications Generic Name Dose Route Start Last Admin Trade Name Freq PRN Reason Stop Dose Admin Atorvastatin Calcium 80 mg 04/02/23 21:00 Atorvastatin 80 Mg Tab PO HS@2100 [facility] Budesonide/Formoterol Fumarate 1 puff 04/02/23 08:00 04/02/23 08:58 Symbicort 80-4.5 Mcg Inhaler INHALATION 1 puff RT-BID MARANDA Administration Carvedilol 3.125 mg 04/02/23 07:00 04/02/23 06:26 Carvedilol 3.125 Mg Tab PO 3.125 mg BID@0700,1700 MARANDA Administration Clopidogrel Bisulfate 75 mg 04/02/23 09:00 04/02/23 08:24 Clopidogrel 75 Mg Tab PO 75 mg DAILY@0900 [facility] Administration Dapagliflozin 10 mg 04/02/23 09:00 04/02/23 11:35 Dapagliflozin Propanediol 10 Mg Tablet PO 10 mg DAILY MARANDA Administration Donepezil HCl 10 mg 04/02/23 21:00 Donepezil 10 Mg Tab PO HS@2100 [facility] Ezetimibe 10 mg 04/02/23 09:00 04/02/23 08:23 Ezetimibe 10 Mg Tab PO 10 mg DAILY@0900 [facility] Administration Famotidine 40 mg 04/02/23 09:00 04/02/23 08:22 Famotidine 20 Mg Tab PO 40 mg DAILY@0900 [facility] Administration Furosemide 40 mg 04/02/23 08:45 04/02/23 12:18 Furosemide 10 Mg/Ml 4 Ml Vial IV 40 mg Q8HR MARANDA Administration Isosorbide Mononitrate 30 mg 04/02/23 09:00 04/02/23 08:22 Isosorbide Mononitrate Er 30 Mg Tab.Er.24h PO 30 mg DAILY@0900 [facility] Administration Loratadine 10 mg 04/02/23 21:00 Loratadine 10 Mg Tab PO HS@2100 MARANDA Morphine Sulfate 4 mg 04/01/23 20:14 Morphine Sulfate 4 Mg/Ml Syringe IV Q4HR PRN Severe Pain (Scale 7 to 10) Naloxone HCl 0.2 mg 04/01/23 20:14 Naloxone 0.4 Mg/Ml 1 Ml Vial IV Q2M PRN Opioid Reversal Nitroglycerin 0.4 mg 04/01/23 21:32 Nitroglycerin Sl Tabs 0.4 Mg Tab SUBLINGUAL Q5M PRN Chest Pain Ondansetron HCl 4 mg 04/01/23 20:14 Ondansetron 4 Mg/2 Ml Vial IVP Q8HR PRN Nausea And Vomiting Ranolazine 500 mg 04/02/23 09:00 04/02/23 09:09 Ranolazine 500 Mg Tab.Er.12h PO 500 mg BID@0900,2100 MARANDA Administration Intake and Output 04/01/23 04/02/23 04/02/23 22:59 06:59 14:59 Other: Weight 86.183 kg 04/02/23 03:19 04/02/23 03:19
[2023-04-02] MEDS ORDERED: WARFARIN 2 MG TAB PO ONE (18:00)
[2023-04-02] MEDS ORDERED: WARFARIN 5 MG TAB PO SCH (18:00)
[2023-04-02] MEDS: LORATADINE 10 MG TAB PO SCH (20:18)
[2023-04-02] MEDS: ATORVASTATIN 80 MG TAB PO SCH (20:18)
[2023-04-02] MEDS: DONEPEZIL 10 MG TAB PO SCH (20:18)
[2023-04-03] MEDS: carvediloL 3.125 MG TAB PO SCH ×2 (05:11→16:12)
[2023-04-03] MEDS: SYMBICORT 80-4.5 MCG INHALER INHALATION SCH ×2 (08:05→21:24)
[2023-04-03] MEDS: EZETIMIBE 10 MG TAB PO SCH (08:15)
[2023-04-03] MEDS: RANOLAZINE 500 MG TAB.ER.12H PO SCH ×2 (08:15→21:24)
[2023-04-03] MEDS: FUROSEMIDE 10 MG/ML 4 ML VIAL IV SCH ×3 (08:15→22:57)
[2023-04-03] MEDS: CLOPIDOGREL 75 MG TAB PO SCH (08:15)
[2023-04-03] MEDS: FAMOTIDINE 20 MG TAB PO SCH (08:16)
[2023-04-03] MEDS: DAPAGLIFLOZIN PROPANEDIOL 10 MG TABLET PO SCH (08:16)
[2023-04-03] MEDS: ISOSORBIDE MONONITRATE ER 30 MG TAB.ER.24H PO SCH (08:16)
--- NOTE | 2023-04-03 08:48 | P.HPIM ---
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 He states he has been noticing leg swelling and feeling more winded over the past week or two, he denies chest pain, cough, fever, chills. He saw his regular home health caregiver yesterday and was recommened to come to the hospital for furher management. He endorses orthopnea. On presentation vitals stable, EKG in AF, Hgb 8.9, INR 3.2, Cr 2.0, potassium 3.1. Trop 0.049. BNP 6400. Review of Systems All systems: negative Constitutional: Reports weakness, Denies chills, Denies fever Eyes: denies blurred vision, denies pain Ears, nose, mouth and throat: Denies headache, Denies sore throat Cardiovascular: Reports dyspnea on exertion, Reports edema, Denies chest pain, Denies shortness of breath Respiratory: Denies cough Gastrointestinal: Denies abdominal pain, Denies diarrhea, Denies nausea, Denies vomiting Musculoskeletal: Denies myalgias Integumentary: Denies pruritus, Denies rash Neurological: Denies numbness, Denies weakness Psychiatric: Denies anxiety, Denies depression Endocrine: Denies fatigue, Denies weight change Past Medical History Past Medical History: Asthma, Cancer, CVA/TIA, Eye Disorder, GERD/Reflux, Hyperlipidemia, Hypertension, Myocardial Infarction (IA), Osteoarthritis (OA) Additional Past Medical History / Comment(s): CVA-NO RESIDUAL EFFECTS, MACULAR DEGENERATION -RT EYE, SOB w/exertion, skin cancer Last Myocardial Infarction Date:: 2005 History of Any Multi-Drug Resistant Organisms: None Reported Past Surgical History: Coronary Bypass/CABG, Heart Catheterization Additional Past Surgical History / Comment(s): BILAT CATARACTS REMOVED, CABG- 2005 X4, COLONOSCOPY, heart cath with stents in 02/08/2023 Past Anesthesia/Blood Transfusion Reactions: No Reported Reaction Past Psychological History: No Psychological Hx Reported Smoking Status: Never smoker Past Alcohol Use History: Rare Additional Past Alcohol Use History / Comment(s): 1 DRINK DAILY Past Drug Use History: None Reported - Past Family History Brother(s) Family Medical History: Cancer Additional Family Medical History / Comment(s): 3 BROTHERS WITH CANCER Sister(s) Family Medical History: Cancer Medications and Allergies Home Medications Medication Instructions Recorded Confirmed Type Loratadine [Claritin] 10 mg PO HS@209906/21/17 04/01/23 History Warfarin [Coumadin] 5 mg PO DAILY@1800 06/21/17 04/01/23 History Albuterol Inhaler [Ventolin Hfa 1 - 2 puff INHALATION RT-Q6H PRN 04/18/18 04/01/23 History Inhaler] Vit C/E/Zn/Coppr/Lutein/Zeaxan 1 cap PO BID@0900,209904/18/18 04/01/23 History [Preservision Areds 2 Softgel] Aspirin 81 mg PO DAILY@89901/04/23 04/01/23 History Atorvastatin [Lipitor] 80 mg PO HS@209901/04/23 04/01/23 History Clopidogrel [Plavix] 75 mg PO DAILY@89901/04/23 04/01/23 History Donepezil [Aricept] 10 mg PO HS@209901/04/23 04/01/23 History Ezetimibe [Zetia] 10 mg PO DAILY@0901/04/23 04/01/23 History Famotidine [Pepcid] 40 mg PO DAILY@89901/04/23 04/01/23 History Fluticasone Propion/Salmeterol 1 puff INHALATION RT-DAILY@89901/04/23 04/01/23 History [Fluticasone-Salmeterol 100-50] Isosorbide Mononitrate ER [Imdur] 30 mg PO DAILY@89901/04/23 04/01/23 History allopurinoL [Zyloprim] 150 mg PO DAILY@89901/04/23 04/01/23 History carvediloL [Coreg] 3.125 mg PO BID@0700,1700 01/04/23 04/01/23 History Nitroglycerin Sl Tabs [Nitrostat] 0.4 mg SUBLINGUAL Q5M PRN tab 02/09/23 Rx Ciprofloxacin HCl [Cipro] 500 mg PO BID 04/01/23 04/01/23 History Furosemide [Lasix] 40 mg PO DAILY@0900 04/01/23 04/01/23 History Ranolazine [Ranexa] 500 mg PO BID@0900,2100 04/01/23 04/01/23 History metOLazone [Zaroxolyn] 5 mg PO TUTH 04/01/23 04/01/23 History Allergies Allergy/AdvReac Type Severity Reaction Status Date / Time No Known Allergies Allergy Verified 04/01/23 20:09 Physical Exam Vitals: Vital Signs Temp Pulse Pulse Resp BP BP Pulse Ox 04/03/23 08:11 98.0 F 95 18 124/80 96 04/03/23 03:44 98.0 F 87 18 107/69 100 04/02/23 23:45 98.3 F 91 18 126/75 93 L 04/02/23 19:46 97.3 F L 72 18 119/78 93 L 04/02/23 18:25 97.3 F L 60 18 123/77 93 L 04/02/23 17:12 90 18 114/85 99 04/02/23 11:26 88 19 105/67 96 04/02/23 08:59 93 L Intake and Output 04/02/23 04/03/23 04/03/23 22:59 06:59 14:59 Intake Total 222 450 370 Output Total 125 1200 Balance 97 -750 370 Intake: IV 10 Invasive Line 1 10 Oral 222 450 360 Output: Urine 125 1200 Other: Voiding Method Toilet Urinal Weight 86.183 kg Gen: well developed, well nourished NAD HEENT: NC/AT, mmm Neck: supple, no JVD or thyromegaly CV: Irregular, systolic murmur. 2+ edema Lungs: Crackles at bases, no wheezes Abd: soft, nontender, non distended Neuro: AAOx3, no focal deficit Skin: warm and dry Results CBC & Chem 7: 04/02/23 03:19 04/02/23 03:19 Thrombosis Risk Factor Assmnt - Choose All That Apply Any of the Below Risk Factors Present?: Yes Each Factor Represents 1 point: Obesity (BMI >25) Each Risk Factor Represents 3 Points: Age 75 years or older Thrombosis Risk Factor Assessment Total Risk Factor Score: 4 Thrombosis Risk Factor Assessment Level: Moderate Risk Assessment and Plan Plan: 1. Acute on chronic systolic CHF. Admit, start IV lasix and potassium. cardiology consult. I/Os, daiy weights 2. CARLOS ALBERTO secondary to vasomotor nephropathy. Treat underlying CHF 3. Abnormal troponin. Type II NSTEMI secondary to CHF exacerabation 4. PAF. Hold coumadin today, follow INR 5. Pleural effusion. Pulmonology consultation
[2023-04-03 09:11] LABS: African American GFR (CKD) 37 (>60 ml/min/1.73 sqM); Anion Gap 12 mmol/L; Blood Urea Nitrogen 54 mg/dL (9-20); Calcium 9.6 mg/dL (8.4-10.2); Carbon Dioxide 28 mmol/L (22-30); Chloride 97 mmol/L (98-107); Glucose 104 mg/dL (74-99); Non-African American GFR(CKD) 32 (>60 ml/min/1.73 sqM); Potassium 3.4 mmol/L (3.5-5.1); Sodium 137 mmol/L (137-145)
[2023-04-03 09:34] LABS: INR 2.6 (<1.2); Prothrombin Time 25.4 sec (10.0-12.5)
--- NOTE | 2023-04-03 10:06 | CA ---
Transthoracic Echo Report Name: Ramesh Velásquez Age: 82 Gender: M : 1940 Exam Date: 04/02/2023 10:53 Exam Location: [facility] Ht (in): 68 Wt (lb): 190 Ordering Physician: Jae Mejia DO Attending/Referring Phys: [id number], Howie Watch Engineer Lydia Jeffrey RDCS Procedure CPT: Indications: LV function, CHF, valvular heart disease Cardiac Hx: Technical Quality: Good Contrast 1: Total Dose (mL): Contrast 2: Total Dose (mL): MEASUREMENTS (Male / Female) Normal Values 2D ECHO LV Diastolic Diameter PLAX 4.9 cm 4.2 - 5.9 / 3.9 - 5.3 cm LV Systolic Diameter PLAX 4.5 cm IVS Diastolic Thickness 1.1 cm 0.6 - 1.0 / 0.6 - 0.9 cm LVPW Diastolic Thickness 1.2 cm 0.6 - 1.0 / 0.6 - 0.9 cm LV Relative Wall Thickness 0.5 RV Internal Dim ED PLAX 3.5 cm LVOT Diameter 2.0 cm LA Systolic Diameter LX 4.1 cm 3.0 - 4.0 / 2.7 - 3.8 cm LV Diastolic Volume MOD 4C 121.5 cm??? LV Systolic Volume MOD 4C 73.9 cm??? LV Ejection Fraction MOD 4C 39.2 % LV Cardiac Index MOD 4C 2271.9 cm???/min???m??? LV Diastolic Length 4C 7.8 cm LV Systolic Length 4C 7.1 cm LV Diastolic Volume MOD 2C 134.7 cm??? LV Systolic Volume MOD 2C 85.1 cm??? LV Ejection Fraction MOD 2C 36.8 % LV Cardiac Index MOD 2C 2365.8 cm???/min???m??? LV Diastolic Length 2C 7.9 cm LV Systolic Length 2C 7.2 cm LA Volume 85.0 cm??? 18 - 58 / 22 - 52 cm??? LA Volume Index 41.4 cm???/m??? 16 - 28 cm???/m??? M-MODE Aortic Root Diameter MM 4.2 cm MV E Point Septal Separation 0.9 cm AV Cusp Separation MM 1.4 cm DOPPLER AV Peak Velocity 205.5 cm/s AV Peak Gradient 16.9 mmHg AV Mean Velocity 137.7 cm/s AV Mean Gradient 9.1 mmHg AV Velocity Time Integral 34.9 cm LVOT Peak Velocity 117.0 cm/s LVOT Peak Gradient 5.5 mmHg AV Area Cont Eq pk 1.9 cm??? MV Area PHT 6.7 cm??? MV Deceleration Time 113.3 ms TR Peak Velocity 385.5 cm/s TR Peak Gradient 59.4 mmHg Right Ventricular Systolic Press 63.7 mmHg FINDINGS Left Ventricle Left ventricular ejection fraction is estimated at 30-35 %. Left ventricular cavity size normal. Mild concentric left ventricular hypertrophy. Septal dyskinesis Right Ventricle Mild right ventricular dilatation. Severe pulmonary hypertension. Right ventricular systolic pressure estimated at 64 mm hg. Right Atrium Moderate right atrial dilatation. Left Atrium Severely increased left atrial volume. Mildly increased left atrial area. Mitral Valve Mitral valve thickened. Mild mitral annular calcification. Moderate mitral regurgitation. Aortic Valve Trileaflet aortic valve. Aortic valve sclerosis. Mild aortic regurgitation. Mild aortic stenosis with a peak gradient of 17 mmHg and a mean gradient of 9 mmHg. Tricuspid Valve Structurally normal tricuspid valve. Moderate tricuspid regurgitation. Pulmonic Valve Pulmonic valve not well visualized. Pericardium No pericardial effusion. Aorta Moderately dilated proximal ascending aorta 42 mm CONCLUSIONS Systolic function with septal dyskinesis Left ventricle ejection fraction 30% Elevated RVSP Low-flow, low gradient aortic stenosis Previewed by: Dr. Rudy Salgado MD (Electronically Signed) Final Date: 03 April 2023 10:05
--- NOTE | 2023-04-03 13:07 | P.PN ---
Subjective HISTORY OF PRESENT ILLNESS: This is a 82-year-old male with a past medical history significant for coronary artery disease with previous CABG and subsequent stenting, ischemic cardiomyopathy, hypertension, hyperlipidemia, ascending aortic aneurysm, valvular heart disease, persistent atrial fibrillation, and asthma. Patient follows in the office with Dr. Bowers and Dr. Salgado. We have been asked to see the patient in consultation for congestive heart failure. Patient examined at the bedside in the emergency room. Patient presented to the hospital with a chief complaint of shortness of breath and increased lower extremity edema. Patient states he was sent into the hospital yesterday by Dr. Bowers. The patient currently denies any chest pain or pressure. He does report shortness of breath and appears dyspneic on evaluation. * EKG reveals atrial fibrillation with controlled ventricular rate * Chest xray cardiomegaly with moderate left and small right pleural effusions. Adjacent atelectasis and/or consolidation. * Laboratory data: WBC 6.0. Hemoglobin 8.9. Platelet count 255. INR 3.2. Sodium 137. Potassium 3.1. BUN 55. Creatinine 2.0. Troponin 0.049. 0.048. 0.047. ProBNP 6400. * Current home cardiac medications include Zaroxolyn 5 mg on Saturday and , Coumadin 5 mg daily, Ranexa 500 mg twice a day, Imdur 30 mg daily, Lasix 40 mg daily, Zetia 10 mg daily, carvedilol 3.125 mg twice a day, Plavix 75 mg daily, atorvastatin 80 mg at night, and aspirin 81 mg daily * Most recent echocardiogram obtained in October 2022 revealed ejection fraction 45%, moderate LVH, [id number] AR, moderate to severe as, moderate MR, moderate TR * Patient underwent TORY in December 2022 revealing moderate aortic stenosis, moderate aortic regurgitation, moderate mitral regurgitation, and moderate to severe tricuspid regurgitation * Cardiac catheterization history: January 2023 revealing 90% distal left main stenosis, 90% OM1 stenosis, 95% stenosis OM 2, 100% proximal LAD, and known 100% RCA stenosis. Only patent graft MOREIRA to the mid LAD/diagonal. Patient underwent Impella assisted stenting of the left main into circumflex, PCI of circumflex into OM 2, and PCI to OM1 04/03/2023 Patient examined this morning at the bedside. Patient denies chest pain or pressure. He continues to report shortness of breath although it is improved from yesterday. He continues to have lower extremity edema as well. He remains on IV Lasix. Creatinine today is 1.92. INR is 2.6. Echocardiogram completed revealing ejection fraction 30-35%, severe pulmonary hypertension, mild aortic stenosis moderate mitral regurgitation, mild aortic regurgitation, and moderate tricuspid regurgitation PHYSICAL EXAM: VITAL SIGNS: Reviewed. GENERAL: Well-developed in no acute distress. HEENT: Head is normocephalic. Pupils are equal, round. Sclerae anicteric. Mucous membranes of the mouth are moist. Neck supple. No JVD or thyromegaly LUNGS: Respirations even and unlabored. Lungs with crackles and diminished breath sounds. Worse on the left. HEART: Irregular rate and rhythm. S1 and S2 heard. Systolic murmur noted ABDOMEN: Soft. Nondistended. Nontender. EXTREMITIES: Normal range of motion. No clubbing or cyanosis. Peripheral pulses intact. 3+ bilateral lower extremity edema NEUROLOGIC: Awake and alert. Oriented x 3. ASSESSMENT: Shortness of breath Acute on chronic heart failure with reduced ejection fraction, 45%, now decreased to 30-35% Coronary artery disease with previous four-vessel CABG and recent stenting in January 2023, as above Valvular heart disease including mild aortic stenosis moderate mitral regurgitation, mild aortic regurgitation, and moderate tricuspid regurgitation Persistent atrial fibrillation with controlled ventricular rate Bilateral pleural effusions, left greater than right Acute kidney injury, creatinine 2.24 admission Abnormal troponins, flat, not suggestive of acute coronary syndrome Hypertension Hyperlipidemia Ascending aortic aneurysm History of asthma Severe pulmonary hypertension PLAN: Continue IV Lasix 40 mg every 8 hours Daily weights, accurate I&O, and monitoring of kidney function Continue additional cardiac medications Aspirin discontinued yesterday. Continue Plavix. Hold Coumadin. Continue to monitor INR. Pulmonary following with plans for left-sided thoracentesis when INR is within safe range Further recommendations pending patient's course Nurse practitioner note has been reviewed by physician. Signing provider agrees with the documented findings, assessment, and plan of care. Objective - Vital Signs Vital signs: Vital Signs Temp 97.7 F 04/03/23 11:30 Pulse 88 04/03/23 11:30 Resp 18 04/03/23 11:30 BP 125/81 04/03/23 11:30 Pulse Ox 92 L 04/03/23 11:30 FiO2 Intake & Output 04/02/23 04/03/23 04/03/23 18:59 06:59 18:59 Intake Total 222 450 370 Output Total 125 1200 300 Balance 97 -750 70 Weight 86.183 kg Intake: IV 10 Invasive Line 1 10 Oral 222 450 360 Output: Urine 125 1200 300 Other: Voiding Method Toilet Urinal - Labs CBC & Chem 7: 04/02/23 03:19 04/03/23 08:09 Labs: Abnormal Lab Results - Last 24 Hours (Table) 04/03/23 04/03/23 Range/Units 08:09 08:09 PT 25.4 H (10.0-12.5) sec INR 2.6 H (<1.2) Potassium 3.4 L (3.5-5.1) mmol/L Chloride 97 L (98-107) mmol/L BUN 54 H (9-20) mg/dL Creatinine 1.92 H (0.66-1.25) mg/dL Glucose 104 H (74-99) mg/dL
[2023-04-03] MEDS: POTASSIUM CHLORIDE ER 20 MEQ TAB.ER PO SCH ×2 (13:54→15:34)
--- NOTE | 2023-04-03 16:12 | P.PN ---
Subjective Progress Note Date: 04/03/23 Principal diagnosis: Shortness of breath, pleural effusion. Pulmonary consult dated 04/02/2023. This is a 82-year-old male, who was seen in the emergency department, trauma room #2. The patient presented to the emergency department on April 01, complaining of shortness of breath. The patient states that his shortness of breath has been getting worse over the last couple days prior to admission. He was seen by cardiology in the emergency department, and they consulted us, because of the left-sided pleural effusion. The patient does have an extensive cardiac history. His medical history includes asthma, CVA, GERD, hyperlipidemia, hypertension, myocardial infarction, macular degeneration, and coronary artery bypass grafting. He was a lifelong nonsmoker. He has a significant history of valvular heart disease as well. White count 6, hemoglobin 8.9, hematocrit 29, with a normal platelet count. PT is 29.6 with an INR 3. Sodium 137, potassium 3.1, chlorides 100, CO2 26, BUN 55, and creatinine 2. Troponins were 0.049, 0.048, and 0.047. His N-terminal proBNP was elevated at 6400. Chest x-ray showed cardiomegaly, with a moderate left-sided pleural effusion and a small right-sided pleural effusion. Ultrasound of the chest reveals a very small right-sided pleural effusion, too small to ruiz, and a left-sided pleural effusion, which is 10 cm in size. Progress note dated 04/03/2023. This is a 82-year-old gentleman who seen today in room 371. The patient was seen yesterday in the emergency department, for shortness of breath. Chest x- ray revealed a pleural effusion. Unfortunately, the patient is on Coumadin. We are holding his Coumadin, and allowing his INR to drift down. I told him today that we would probably do his thoracentesis on Saturday. Clinically, he stable. He's currently on 3 L of oxygen. His INR today was 2.6. Sodium 137, potassium 3.4, chlorides 97, CO2 28, BUN 54, and creatinine 1.92. Objective - Vital Signs Vital signs: Vital Signs Temp 98.0 F 04/03/23 15:34 Pulse 84 04/03/23 15:34 Resp 18 04/03/23 15:34 BP 115/74 04/03/23 15:34 Pulse Ox 95 04/03/23 15:34 FiO2 Intake & Output 04/02/23 04/03/23 04/03/23 18:59 06:59 18:59 Intake Total 222 450 740 Output Total 125 1200 800 Balance 97 -750 -60 Weight 86.183 kg Intake: IV 20 Invasive Line 1 20 Oral 222 450 720 Output: Urine 125 1200 800 Other: Voiding Method Toilet Urinal - Exam No acute distress, oriented 3. Currently on 3 L nasal cannula. HEENT examination is grossly unremarkable. Mucous membranes are moist. No oral lesions. Neck supple. Full range of motion. No adenopathy thyromegaly or neck vein distention. Cardiovascular examination reveals an irregular rhythm and rate. S1-S2 normal. No S3 or S4. No discernible murmur noted. Heart rate 84 bpm. Lungs reveal diminished breath sounds and dullness at the left base. No rhonchi or wheezes. Abdomen soft bowel sounds are heard. No masses or tenderness. Extremities are intact. No cyanosis clubbing or edema. Skin is without rash or lesion. Neurologic examination is brief but nonfocal. - Labs CBC & Chem 7: 04/02/23 03:19 04/03/23 08:09 Labs: Abnormal Lab Results - Last 24 Hours (Table) 04/03/23 04/03/23 Range/Units 08:09 08:09 PT 25.4 H (10.0-12.5) sec INR 2.6 H (<1.2) Potassium 3.4 L (3.5-5.1) mmol/L Chloride 97 L (98-107) mmol/L BUN 54 H (9-20) mg/dL Creatinine 1.92 H (0.66-1.25) mg/dL Glucose 104 H (74-99) mg/dL Assessment and Plan Assessment: Progressive shortness of breath, in part related to left-sided pleural effusion and chronic atrial fibrillation. History of chronic atrial fibrillation. History of myocardial infarction. History of valvular heart disease. History of previous bypass grafting. History of CVA. History of gastroesophageal reflux disease. History of hyperlipidemia. History of hypertension. History of asthma. Plan: Plan dated 04/02/2023. Cardiology is holding the patient's Coumadin. Eventually, the patient will benefit from a thoracentesis. We will check an INR and PTT in the morning. I explained the process to the patient. He understands and agrees to go forward with thoracentesis, once his INR is in a safe range. No additional recommendations are made. The right-sided effusion is very small. Plan dated 04/03/2023. The patient's INR today was 2.6. Were allowing the patient's INR to drift down. Coumadin is on hold. The ultrasound of the chest was done, and reviewed. We will plan on doing a thoracentesis, later this week, maybe on Saturday. Currently, the patient's on 3 L. He's not having much in the way of respiratory difficulty or distress. Time with Patient: Less than 30
[2023-04-03] MEDS: DONEPEZIL 10 MG TAB PO SCH (21:24)
[2023-04-03] MEDS: ATORVASTATIN 80 MG TAB PO SCH (21:24)
[2023-04-03] MEDS: LORATADINE 10 MG TAB PO SCH (21:24)
[2023-04-04] MEDS: carvediloL 3.125 MG TAB PO SCH ×2 (06:13→15:47)
[2023-04-04 07:58] LABS: INR 2.1 (<1.2); Prothrombin Time 21.1 sec (10.0-12.5)
[2023-04-04] MEDS: SYMBICORT 80-4.5 MCG INHALER INHALATION SCH ×2 (08:25→21:43)
[2023-04-04 08:44] LABS: African American GFR (CKD) 33 (>60 ml/min/1.73 sqM); Anion Gap 13 mmol/L; Blood Urea Nitrogen 58 mg/dL (9-20); Calcium 9.5 mg/dL (8.4-10.2); Carbon Dioxide 28 mmol/L (22-30); Chloride 94 mmol/L (98-107); Glucose 103 mg/dL (74-99); Non-African American GFR(CKD) 28 (>60 ml/min/1.73 sqM); Potassium 3.8 mmol/L (3.5-5.1); Sodium 135 mmol/L (137-145)
[2023-04-04] MEDS: EZETIMIBE 10 MG TAB PO SCH (08:59)
[2023-04-04] MEDS: RANOLAZINE 500 MG TAB.ER.12H PO SCH ×2 (08:59→20:13)
[2023-04-04] MEDS: ISOSORBIDE MONONITRATE ER 30 MG TAB.ER.24H PO SCH (08:59)
[2023-04-04] MEDS: CLOPIDOGREL 75 MG TAB PO SCH (08:59)
[2023-04-04] MEDS: DAPAGLIFLOZIN PROPANEDIOL 10 MG TABLET PO SCH (08:59)
[2023-04-04] MEDS: FAMOTIDINE 20 MG TAB PO SCH (08:59)
[2023-04-04] MEDS: FUROSEMIDE 10 MG/ML 4 ML VIAL IV SCH ×3 (08:59→23:08)
--- NOTE | 2023-04-04 10:17 | P.PN ---
Subjective HISTORY OF PRESENT ILLNESS: This is a 82-year-old male with a past medical history significant for coronary artery disease with previous CABG and subsequent stenting, ischemic cardiomyopathy, hypertension, hyperlipidemia, ascending aortic aneurysm, valvular heart disease, persistent atrial fibrillation, and asthma. Patient follows in the office with Dr. Bowers and Dr. Salgado. We have been asked to see the patient in consultation for congestive heart failure. Patient examined at the bedside in the emergency room. Patient presented to the hospital with a chief complaint of shortness of breath and increased lower extremity edema. Patient states he was sent into the hospital yesterday by Dr. Bowers. The patient currently denies any chest pain or pressure. He does report shortness of breath and appears dyspneic on evaluation. * EKG reveals atrial fibrillation with controlled ventricular rate * Chest xray cardiomegaly with moderate left and small right pleural effusions. Adjacent atelectasis and/or consolidation. * Laboratory data: WBC 6.0. Hemoglobin 8.9. Platelet count 255. INR 3.2. Sodium 137. Potassium 3.1. BUN 55. Creatinine 2.0. Troponin 0.049. 0.048. 0.047. ProBNP 6400. * Current home cardiac medications include Zaroxolyn 5 mg on Saturday and , Coumadin 5 mg daily, Ranexa 500 mg twice a day, Imdur 30 mg daily, Lasix 40 mg daily, Zetia 10 mg daily, carvedilol 3.125 mg twice a day, Plavix 75 mg daily, atorvastatin 80 mg at night, and aspirin 81 mg daily * Most recent echocardiogram obtained in October 2022 revealed ejection fraction 45%, moderate LVH, [id number] AR, moderate to severe as, moderate MR, moderate TR * Patient underwent TORY in December 2022 revealing moderate aortic stenosis, moderate aortic regurgitation, moderate mitral regurgitation, and moderate to severe tricuspid regurgitation * Cardiac catheterization history: January 2023 revealing 90% distal left main stenosis, 90% OM1 stenosis, 95% stenosis OM 2, 100% proximal LAD, and known 100% RCA stenosis. Only patent graft MOREIRA to the mid LAD/diagonal. Patient underwent Impella assisted stenting of the left main into circumflex, PCI of circumflex into OM 2, and PCI to OM1 04/03/2023 Patient examined this morning at the bedside. Patient denies chest pain or pressure. He continues to report shortness of breath although it is improved from yesterday. He continues to have lower extremity edema as well. He remains on IV Lasix. Creatinine today is 1.92. INR is 2.6. Echocardiogram completed revealing ejection fraction 30-35%, severe pulmonary hypertension, mild aortic stenosis moderate mitral regurgitation, mild aortic regurgitation, and moderate tricuspid regurgitation 04/04/2023 Patient examined this morning. Patient is sitting up in the chair. Patient denies chest pain or pressure. He reports improvement in his shortness of breath. He also reports improvement in his lower extremity edema. He remains on IV Lasix 40 mg every 8 hours. Kidney function stable. Creatinine 2.13 today. INR 2.1. His Coumadin remains on hold. PHYSICAL EXAM: VITAL SIGNS: Reviewed. GENERAL: Well-developed in no acute distress. HEENT: Head is normocephalic. Pupils are equal, round. Sclerae anicteric. Mucous membranes of the mouth are moist. Neck supple. No JVD or thyromegaly LUNGS: Respirations even and unlabored. Lungs with crackles and diminished jose j th sounds. Worse on the left. HEART: Irregular rate and rhythm. S1 and S2 heard. Systolic murmur noted ABDOMEN: Soft. Nondistended. Nontender. EXTREMITIES: Normal range of motion. No clubbing or cyanosis. Peripheral pulses intact. 2 + bilateral lower extremity edema NEUROLOGIC: Awake and alert. Oriented x 3. ASSESSMENT: Shortness of breath Acute on chronic heart failure with reduced ejection fraction, 45%, now decreased to 30-35% Coronary artery disease with previous four-vessel CABG and recent stenting in January 2023, as above Valvular heart disease including mild aortic stenosis moderate mitral regurgitation, mild aortic regurgitation, and moderate tricuspid regurgitation Persistent atrial fibrillation with controlled ventricular rate Bilateral pleural effusions, left greater than right Acute kidney injury, creatinine 2.24 admission Abnormal troponins, flat, not suggestive of acute coronary syndrome Hypertension Hyperlipidemia Ascending aortic aneurysm History of asthma Severe pulmonary hypertension PLAN: Continue IV Lasix 40 mg every 8 hours Daily weights, accurate I&O, and monitoring of kidney function Continue additional cardiac medications Aspirin has been discontinued. Continue Plavix. Hold Coumadin. Continue to monitor INR. Pulmonary following with plans for left-sided thoracentesis when INR is within safe range Obtain 2 view chest x-ray tomorrow morning Further recommendations pending patient's course Nurse practitioner note has been reviewed by physician. Signing provider agrees with the documented findings, assessment, and plan of care. Objective - Vital Signs Vital signs: Vital Signs Temp 97.7 F 04/04/23 08:45 Pulse 63 04/04/23 08:45 Resp 18 04/04/23 08:45 BP 116/73 04/04/23 08:45 Pulse Ox 99 04/04/23 08:45 FiO2 Intake & Output 04/03/23 04/04/23 04/04/23 18:59 06:59 18:59 Intake Total 980 236 Output Total 900 Balance 80 236 Weight 106 kg Intake: IV 20 Invasive Line 1 20 Oral 960 236 Output: Urine 900 Other: Voiding Method Toilet Urinal - Labs CBC & Chem 7: 04/02/23 03:19 04/04/23 07:10 Labs: Abnormal Lab Results - Last 24 Hours (Table) 04/04/23 04/04/23 Range/Units 07:10 07:10 PT 21.1 H (10.0-12.5) sec INR 2.1 H (<1.2) Sodium 135 L (137-145) mmol/L Chloride 94 L (98-107) mmol/L BUN 58 H (9-20) mg/dL Creatinine 2.13 H (0.66-1.25) mg/dL Glucose 103 H (74-99) mg/dL
--- NOTE | 2023-04-04 15:10 | P.PN ---
Subjective Progress Note Date: 04/04/23 Principal diagnosis: Shortness of breath, pleural effusion. Pulmonary consult dated 04/02/2023. This is a 82-year-old male, who was seen in the emergency department, trauma room #2. The patient presented to the emergency department on April 01, complaining of shortness of breath. The patient states that his shortness of breath has been getting worse over the last couple days prior to admission. He was seen by cardiology in the emergency department, and they consulted us, because of the left-sided pleural effusion. The patient does have an extensive cardiac history. His medical history includes asthma, CVA, GERD, hyperlipidemia, hypertension, myocardial infarction, macular degeneration, and coronary artery bypass grafting. He was a lifelong nonsmoker. He has a significant history of valvular heart disease as well. White count 6, hemoglobin 8.9, hematocrit 29, with a normal platelet count. PT is 29.6 with an INR 3. Sodium 137, potassium 3.1, chlorides 100, CO2 26, BUN 55, and creatinine 2. Troponins were 0.049, 0.048, and 0.047. His N-terminal proBNP was elevated at 6400. Chest x-ray showed cardiomegaly, with a moderate left-sided pleural effusion and a small right-sided pleural effusion. Ultrasound of the chest reveals a very small right-sided pleural effusion, too small to ruiz, and a left-sided pleural effusion, which is 10 cm in size. Progress note dated 04/03/2023. This is a 82-year-old gentleman who seen today in room 371. The patient was seen yesterday in the emergency department, for shortness of breath. Chest x- ray revealed a pleural effusion. Unfortunately, the patient is on Coumadin. We are holding his Coumadin, and allowing his INR to drift down. I told him today that we would probably do his thoracentesis on Saturday. Progress note dated 04/04/2023. 82-year-old male was admitted with diagnosis of CHF, lower extremity edema, and pleural effusion. Clinically, the patient's doing well, any stye diuresed very nicely. His lower extremity edema still present. He'll have a chest x-ray done tomorrow, April 05. In addition, the patient's INR is currently 2.1. The patient may or may not need a thoracentesis tomorrow. We will evaluate him tomorrow and make a decision. Currently, his sodium is 135, potassium 3.8, chloride 94, CO2 28, BUN 58, creatinine 2.13. Objective - Vital Signs Vital signs: Vital Signs Temp 97.5 F L 04/04/23 12:09 Pulse 81 04/04/23 12:09 Resp 20 04/04/23 12:09 BP 144/73 04/04/23 12:09 Pulse Ox 95 04/04/23 12:09 FiO2 Intake & Output 04/03/23 04/04/23 04/04/23 18:59 06:59 18:59 Intake Total 980 476 Output Total 900 700 Balance 80 -224 Weight 106 kg 84.2 kg Intake: IV 20 Invasive Line 1 20 Oral 960 476 Output: Urine 900 700 Other: Voiding Method Toilet Urinal # Voids 1 - Exam No acute distress, oriented 3. Currently on 2 L nasal cannula. HEENT examination is grossly unremarkable. Mucous membranes are moist. No oral lesions. Neck supple. Full range of motion. No adenopathy thyromegaly or neck vein distention. Cardiovascular examination reveals an irregular rhythm and rate. S1-S2 normal. No S3 or S4. No discernible murmur noted. Heart rate 81 bpm. Lungs reveal diminished breath sounds and dullness at the left base. No rhonchi or wheezes. Abdomen soft bowel sounds are heard. No masses or tenderness. Extremities are intact. No cyanosis or clubbing. 1-2+ lower extremity edema is noted. Skin is without rash or lesion. Neurologic examination is brief but nonfocal. - Labs CBC & Chem 7: 04/02/23 03:19 04/04/23 07:10 Labs: Abnormal Lab Results - Last 24 Hours (Table) 04/04/23 04/04/23 Range/Units 07:10 07:10 PT 21.1 H (10.0-12.5) sec INR 2.1 H (<1.2) Sodium 135 L (137-145) mmol/L Chloride 94 L (98-107) mmol/L BUN 58 H (9-20) mg/dL Creatinine 2.13 H (0.66-1.25) mg/dL Glucose 103 H (74-99) mg/dL Assessment and Plan Assessment: Progressive shortness of breath, in part related to left-sided pleural effusion and chronic atrial fibrillation. History of chronic atrial fibrillation. History of myocardial infarction. History of valvular heart disease. History of previous bypass grafting. History of CVA. History of gastroesophageal reflux disease. History of hyperlipidemia. History of hypertension. History of asthma. Plan: Plan dated 04/02/2023. Cardiology is holding the patient's Coumadin. Eventually, the patient will benefit from a thoracentesis. We will check an INR and PTT in the morning. I explained the process to the patient. He understands and agrees to go forward with thoracentesis, once his INR is in a safe range. No additional recommendations are made. The right-sided effusion is very small. Plan dated 04/03/2023. The patient's INR today was 2.6. Were allowing the patient's INR to drift down. Coumadin is on hold. The ultrasound of the chest was done, and reviewed. We will plan on doing a thoracentesis, later this week, maybe on Saturday. Currently, the patient's on 3 L. He's not having much in the way of respiratory difficulty or distress. Plan dated 04/04/2023. The patient's INR is now down to 2.1. Chest x-ray will be ordered tomorrow. He's had significant diuresis from Lasix. We'll make a decision about thoracentesis tomorrow. Additional recommendations and suggestions are forthcoming. Labs, x-rays, and medications are reviewed. The patient is stable from the pulmonary standpoint, and is currently only on 2 L of oxygen. Time with Patient: Less than 30
[2023-04-04] MEDS: SODIUM FERRIC GLUCONAT-SUCROSE 125 MG in SODIUM CHLORIDE 0.9% 100 ML IVPB SCH (15:47)
[2023-04-04] MEDS: ATORVASTATIN 80 MG TAB PO SCH (20:13)
[2023-04-04] MEDS: LORATADINE 10 MG TAB PO SCH (20:13)
[2023-04-04] MEDS: DONEPEZIL 10 MG TAB PO SCH (20:13)
[2023-04-05] MEDS: carvediloL 3.125 MG TAB PO SCH ×2 (06:13→17:05)
--- NOTE | 2023-04-05 08:20 | XR ---
EXAMINATION TYPE: XR chest 2V DATE OF EXAM: 04/05/2023 COMPARISON: 04/01/2023 HISTORY: 82-year-old male with CHF, pleural effusion TECHNIQUE: PA and lateral views FINDINGS: Median sternotomy wires and post-CABG clips. Atherosclerotic arch calcifications. Ongoing moderate le ft and small right pleural effusions with bibasilar opacities. Interstitial prominence persists. Unde rlying cardiomegaly. IMPRESSION: Ongoing moderate left and small right pleural effusions with adjacent atelectasis and/or consolidatio n. Likely sequela of CHF.
--- NOTE | 2023-04-05 08:33 | P.PN ---
Subjective Progress Note Date: 04/04/23 He is feeling slightly improved today although continues to complain of shortness of breath. INR trending down to 2.1. He awaits thoracentesis. Objective - Vital Signs Vital signs: Vital Signs Temp 97.8 F 04/05/23 08:10 Pulse 75 04/05/23 08:10 Resp 18 04/05/23 08:10 BP 121/74 04/05/23 08:10 Pulse Ox 99 04/05/23 08:10 FiO2 Intake & Output 04/04/23 04/05/23 04/05/23 18:59 06:59 18:59 Intake Total 716 540 Output Total 1000 1150 Balance -284 -610 Weight 84.2 kg 82.9 kg Intake: Oral 716 540 Output: Urine 1000 1150 Other: Voiding Method Toilet Urinal # Voids 1 1 - Exam Gen : well developed NAD CV: No murmur. 1+ edema BLE Lungs: diminished breath sounds, crackles at bases - Labs CBC & Chem 7: 04/02/23 03:19 04/04/23 07:10 Labs: Abnormal Lab Results - Last 24 Hours (Table) 04/04/23 Range/Units 07:10 Sodium 135 L (137-145) mmol/L Chloride 94 L (98-107) mmol/L BUN 58 H (9-20) mg/dL Creatinine 2.13 H (0.66-1.25) mg/dL Glucose 103 H (74-99) mg/dL Assessment and Plan Plan: Continue present course, hold coumadin and await thoracentesis. Continue lasix
[2023-04-05 09:20] LABS: INR 1.5 (<1.2); Prothrombin Time 15.5 sec (10.0-12.5)
[2023-04-05 09:35] LABS: African American GFR (CKD) 32 (>60 ml/min/1.73 sqM); Anion Gap 9 mmol/L; Blood Urea Nitrogen 61 mg/dL (9-20); Calcium 9.2 mg/dL (8.4-10.2); Carbon Dioxide 31 mmol/L (22-30); Chloride 95 mmol/L (98-107); Glucose 97 mg/dL (74-99); Non-African American GFR(CKD) 27 (>60 ml/min/1.73 sqM); Potassium 3.3 mmol/L (3.5-5.1); Sodium 135 mmol/L (137-145)
[2023-04-05] MEDS: SYMBICORT 80-4.5 MCG INHALER INHALATION SCH ×2 (09:37→21:35)
[2023-04-05] MEDS ORDERED: Potassium Replacement Protocol 1 EACH MISC MISCELLANE PRN (09:42)
[2023-04-05] MEDS: ISOSORBIDE MONONITRATE ER 30 MG TAB.ER.24H PO SCH (09:52)
[2023-04-05] MEDS: FAMOTIDINE 20 MG TAB PO SCH (09:52)
[2023-04-05] MEDS: RANOLAZINE 500 MG TAB.ER.12H PO SCH ×2 (09:52→20:11)
[2023-04-05] MEDS: FUROSEMIDE 10 MG/ML 4 ML VIAL IV SCH ×3 (09:52→23:02)
[2023-04-05] MEDS: CLOPIDOGREL 75 MG TAB PO SCH (09:52)
[2023-04-05] MEDS: POTASSIUM CHLORIDE ER 20 MEQ TAB.ER PO SCH ×2 (09:52→14:48)
[2023-04-05] MEDS: EZETIMIBE 10 MG TAB PO SCH (09:52)
--- NOTE | 2023-04-05 10:02 | US ---
EXAMINATION TYPE: US chest DATE OF EXAM: 04/05/2023 COMPARISON: Radiograph same day CLINICAL INDICATION: Male, 82 years old with history of Markings for thoracentesis by pulmonary staff ; TECHNIQUE: Targeted ultrasound of the posterior lower left hemithorax Vault [employer] notes: Exam done portable EXAM MEASUREMENTS: Left Pleural Effusion pocket size: 9.2 cm Left skin surface to fluid distance: 3.0 cm Left side marked for possible thoracentesis outside the dept. Pulmonologists are able to review the images in the patient?s EMR. IMPRESSIONS: Moderate left pleural effusion with marking performed.
--- NOTE | 2023-04-05 11:43 | XR ---
EXAMINATION TYPE: XR chest 1V portable DATE OF EXAM: 04/05/2023 Comparison: Earlier today Clinical History: 82-year-old male L thoracentesis Findings: Moderate cardiomegaly. Interstitial density. Residual trace to small bilateral pleural effusions, imp roved significantly on the left. No appreciable pneumothorax. Median sternotomy wires with post-CABG clips in the mediastinum. Impression: 1. Interval improvement in the left effusion. Residual trace to small bilateral pleural effusions wit h adjacent atelectasis and/or consolidation. 2. Similar cardiomegaly with residual background mild pulmonary vascular congestion remains.
--- NOTE | 2023-04-05 12:05 | PCN ---
PROCEDURE NOTE PROCEDURE PERFORMED: Left thoracentesis. PREOPERATIVE DIAGNOSIS: Left pleural effusion. POSTOPERATIVE DIAGNOSIS: Left pleural effusion. DESCRIPTION OF PROCEDURE: There were informed consent and universal time-out. The patient's procedure took place at the bedside, room 371. The left posterior chest was marked by ultrasound. 1350 mL of light red fluid was removed from the left pleural space. The patient tolerated the procedure well. A chest x-ray will be ordered to rule out pneumothorax. The fluid will be sent for analysis. There was no immediate complication. MMODL / IJN: [id number] / MTDD
--- NOTE | 2023-04-05 12:37 | P.PN ---
Subjective HISTORY OF PRESENT ILLNESS: This is a 82-year-old male with a past medical history significant for coronary artery disease with previous CABG and subsequent stenting, ischemic cardiomyopathy, hypertension, hyperlipidemia, ascending aortic aneurysm, valvular heart disease, persistent atrial fibrillation, and asthma. Patient follows in the office with Dr. Bowers and Dr. Salgado. We have been asked to see the patient in consultation for congestive heart failure. Patient examined at the bedside in the emergency room. Patient presented to the hospital with a chief complaint of shortness of breath and increased lower extremity edema. Patient states he was sent into the hospital yesterday by Dr. Bowers. The patient currently denies any chest pain or pressure. He does report shortness of breath and appears dyspneic on evaluation. * EKG reveals atrial fibrillation with controlled ventricular rate * Chest xray cardiomegaly with moderate left and small right pleural effusions. Adjacent atelectasis and/or consolidation. * Laboratory data: WBC 6.0. Hemoglobin 8.9. Platelet count 255. INR 3.2. Sodium 137. Potassium 3.1. BUN 55. Creatinine 2.0. Troponin 0.049. 0.048. 0.047. ProBNP 6400. * Current home cardiac medications include Zaroxolyn 5 mg on Saturday and , Coumadin 5 mg daily, Ranexa 500 mg twice a day, Imdur 30 mg daily, Lasix 40 mg daily, Zetia 10 mg daily, carvedilol 3.125 mg twice a day, Plavix 75 mg daily, atorvastatin 80 mg at night, and aspirin 81 mg daily * Most recent echocardiogram obtained in October 2022 revealed ejection fraction 45%, moderate LVH, [id number] AR, moderate to severe as, moderate MR, moderate TR * Patient underwent TORY in December 2022 revealing moderate aortic stenosis, moderate aortic regurgitation, moderate mitral regurgitation, and moderate to severe tricuspid regurgitation * Cardiac catheterization history: January 2023 revealing 90% distal left main stenosis, 90% OM1 stenosis, 95% stenosis OM 2, 100% proximal LAD, and known 100% RCA stenosis. Only patent graft MOREIRA to the mid LAD/diagonal. Patient underwent Impella assisted stenting of the left main into circumflex, PCI of circumflex into OM 2, and PCI to OM1 04/03/2023 Patient examined this morning at the bedside. Patient denies chest pain or pressure. He continues to report shortness of breath although it is improved from yesterday. He continues to have lower extremity edema as well. He remains on IV Lasix. Creatinine today is 1.92. INR is 2.6. Echocardiogram completed revealing ejection fraction 30-35%, severe pulmonary hypertension, mild aortic stenosis moderate mitral regurgitation, mild aortic regurgitation, and moderate tricuspid regurgitation 04/04/2023 Patient examined this morning. Patient is sitting up in the chair. Patient denies chest pain or pressure. He reports improvement in his shortness of breath. He also reports improvement in his lower extremity edema. He remains on IV Lasix 40 mg every 8 hours. Kidney function stable. Creatinine 2.13 today. INR 2.1. His Coumadin remains on hold. 04/05/2023 Patient examined this morning. Chest x-ray this morning reveals ongoing moderate left and small right pleural effusion with adjacent atelectasis or consolidation. INR today is 1.5. Coumadin remains on hold. Patient is status post thoracentesis with removal of 1.3 L. He remains on IV Lasix. Creatinine 2.20. PHYSICAL EXAM: VITAL SIGNS: Reviewed. GENERAL: Well-developed in no acute distress. HEENT: Head is normocephalic. Pupils are equal, round. Sclerae anicteric. Mucous membranes of the mouth are moist. Neck supple. No JVD or thyromegaly LUNGS: Respirations even and unlabored. Lungs with crackles and diminished breath sounds. Worse on the left. HEART: Irregular rate and rhythm. S1 and S2 heard. Systolic murmur noted ABDOMEN: Soft. Nondistended. Nontender. EXTREMITIES: Normal range of motion. No clubbing or cyanosis. Peripheral pulses intact. 2 + bilateral lower extremity edema NEUROLOGIC: Awake and alert. Oriented x 3. ASSESSMENT: Shortness of breath Acute on chronic heart failure with reduced ejection fraction, 45%, now decreased to 30-35% Coronary artery disease with previous four-vessel CABG and recent stenting in January 2023, as above Valvular heart disease including mild aortic stenosis moderate mitral regurgitation, mild aortic regurgitation, and moderate tricuspid regurgitation Persistent atrial fibrillation with controlled ventricular rate Bilateral pleural effusions, left greater than right, status post left-sided thoracentesis Acute kidney injury, creatinine 2.24 admission Abnormal troponins, flat, not suggestive of acute coronary syndrome Hypertension Hyperlipidemia Ascending aortic aneurysm History of asthma Severe pulmonary hypertension PLAN: Continue IV Lasix 40 mg every 8 hours Daily weights, accurate I&O, and monitoring of kidney function Continue additional cardiac medications Aspirin has been discontinued. Continue Plavix. Resume Coumadin. Monitor INR. Possible discharge home tomorrow Further recommendations pending patient's course Nurse practitioner note has been reviewed by physician. Signing provider agrees with the documented findings, assessment, and plan of care. Objective - Vital Signs Vital signs: Vital Signs Temp 97.8 F 04/05/23 08:10 Pulse 75 04/05/23 08:10 Resp 20 04/05/23 10:11 BP 121/74 04/05/23 08:10 Pulse Ox 99 04/05/23 08:10 FiO2 Intake & Output 04/04/23 04/05/23 04/05/23 18:59 06:59 18:59 Intake Total 716 540 Output Total 1000 1150 Balance -284 -610 Weight 84.2 kg 82.9 kg Intake: Oral 716 540 Output: Urine 1000 1150 Other: Voiding Method Toilet Toilet Urinal Urinal # Voids 1 1 3 # Bowel Movements 1 - Labs CBC & Chem 7: 04/02/23 03:19 04/05/23 08:52 Labs: Abnormal Lab Results - Last 24 Hours (Table) 04/05/23 04/05/23 Range/Units 08:52 08:52 PT 15.5 H (10.0-12.5) sec INR 1.5 H (<1.2) Sodium 135 L (137-145) mmol/L Potassium 3.3 L (3.5-5.1) mmol/L Chloride 95 L (98-107) mmol/L Carbon Dioxide 31 H (22-30) mmol/L BUN 61 H (9-20) mg/dL Creatinine 2.20 H (0.66-1.25) mg/dL
[2023-04-05] MEDS: DAPAGLIFLOZIN PROPANEDIOL 10 MG TABLET PO SCH (14:48)
--- NOTE | 2023-04-05 16:30 | P.PN ---
Subjective Progress Note Date: 04/05/23 Principal diagnosis: Shortness of breath, pleural effusion. Pulmonary consult dated 04/02/2023. This is a 82-year-old male, who was seen in the emergency department, trauma room #2. The patient presented to the emergency department on April 01, complaining of shortness of breath. The patient states that his shortness of breath has been getting worse over the last couple days prior to admission. He was seen by cardiology in the emergency department, and they consulted us, because of the left-sided pleural effusion. The patient does have an extensive cardiac history. His medical history includes asthma, CVA, GERD, hyperlipidemia, hypertension, myocardial infarction, macular degeneration, and coronary artery bypass grafting. He was a lifelong nonsmoker. He has a significant history of valvular heart disease as well. White count 6, hemoglobin 8.9, hematocrit 29, with a normal platelet count. PT is 29.6 with an INR 3. Sodium 137, potassium 3.1, chlorides 100, CO2 26, BUN 55, and creatinine 2. Troponins were 0.049, 0.048, and 0.047. His N-terminal proBNP was elevated at 6400. Chest x-ray showed cardiomegaly, with a moderate left-sided pleural effusion and a small right-sided pleural effusion. Ultrasound of the chest reveals a very small right-sided pleural effusion, too small to ruiz, and a left-sided pleural effusion, which is 10 cm in size. Progress note dated 04/03/2023. This is a 82-year-old gentleman who seen today in room 371. The patient was seen yesterday in the emergency department, for shortness of breath. Chest x- ray revealed a pleural effusion. Unfortunately, the patient is on Coumadin. We are holding his Coumadin, and allowing his INR to drift down. I told him today that we would probably do his thoracentesis on Saturday. Progress note dated 04/04/2023. 82-year-old male was admitted with diagnosis of CHF, lower extremity edema, and pleural effusion. Clinically, the patient's doing well, any stye diuresed very nicely. His lower extremity edema still present. He'll have a chest x-ray done tomorrow, April 05. In addition, the patient's INR is currently 2.1. The patient may or may not need a thoracentesis tomorrow. We will evaluate him tomorrow and make a decision. Currently, his sodium is 135, potassium 3.8, chloride 94, CO2 28, BUN 58, creatinine 2.13. Progress note dated 04/05/2023. The patient's INR today was 1.5. He was on 2 L of oxygen. No IV fluids. Therefore, we went ahead and did a left-sided thoracentesis, and roughly 1.4 L of fluid was removed. It was sent to laboratory for analysis. The patient was feeling better after the procedure, and his chest x-ray looked much improved. I told her nurse, that if it was okay with cardiology, he could resume his Coumadin. Sodium 135, potassium 3.3, chlorides 95, CO2 31, BUN 61, and creatinine 2.20. Chest x-ray showed no evidence of pneumothorax. There was significant interval improvement in the left-sided effusion. There was car diomegaly. Objective - Vital Signs Vital signs: Vital Signs Temp 97.4 F L 04/05/23 15:53 Pulse 77 04/05/23 15:53 Resp 18 04/05/23 15:53 BP 111/59 04/05/23 15:53 Pulse Ox 92 L 04/05/23 15:53 FiO2 Intake & Output 04/04/23 04/05/23 04/05/23 18:59 06:59 18:59 Intake Total 716 540 240 Output Total 1000 1150 2250 Balance -284 Weight 84.2 kg 82.9 kg Intake: Oral 716 540 240 Output: Drainage 1350 Left Upper Back 1350 Urine 1000 1150 900 Other: Voiding Method Toilet Toilet Urinal Urinal # Voids 1 1 3 # Bowel Movements 1 - Exam No acute distress, oriented 3. Currently on 2 L nasal cannula. Saturations are 98%. HEENT examination is grossly unremarkable. Mucous membranes are moist. No oral lesions. Neck supple. Full range of motion. No adenopathy thyromegaly or neck vein distention. Cardiovascular examination reveals an irregular rhythm and rate. S1-S2 normal. No S3 or S4. No discernible murmur noted. Heart rate 77 bpm. Lungs reveal diminished breath sounds and dullness at the left base. No rhonchi or wheezes. Abdomen soft bowel sounds are heard. No masses or tenderness. Extremities are intact. No cyanosis or clubbing. 1-2+ lower extremity edema is noted. Skin is without rash or lesion. Neurologic examination is brief but nonfocal. - Labs CBC & Chem 7: 04/02/23 03:19 04/05/23 08:52 Labs: Abnormal Lab Results - Last 24 Hours (Table) 04/05/23 04/05/23 Range/Units 08:52 08:52 PT 15.5 H (10.0-12.5) sec INR 1.5 H (<1.2) Sodium 135 L (137-145) mmol/L Potassium 3.3 L (3.5-5.1) mmol/L Chloride 95 L (98-107) mmol/L Carbon Dioxide 31 H (22-30) mmol/L BUN 61 H (9-20) mg/dL Creatinine 2.20 H (0.66-1.25) mg/dL Assessment and Plan Assessment: Progressive shortness of breath, in part related to left-sided pleural effusion and chronic atrial fibrillation. S/P left-sided thoracentesis, 04/05/2023, was 1.4 L removed. History of chronic atrial fibrillation. History of myocardial infarction. History of valvular heart disease. History of previous bypass grafting. History of CVA. History of gastroesophageal reflux disease. History of hyperlipidemia. History of hypertension. History of asthma. Plan: Plan dated 04/02/2023. Cardiology is holding the patient's Coumadin. Eventually, the patient will benefit from a thoracentesis. We will check an INR and PTT in the morning. I explained the process to the patient. He understands and agrees to go forward with thoracentesis, once his INR is in a safe range. No additional recommendations are made. The right-sided effusion is very small. Plan dated 04/03/2023. The patient's INR today was 2.6. Were allowing the patient's INR to drift down. Coumadin is on hold. The ultrasound of the chest was done, and reviewed. We will plan on doing a thoracentesis, later this week, maybe on Saturday. Currently, the patient's on 3 L. He's not having much in the way of respiratory difficulty or distress. Plan dated 04/04/2023. The patient's INR is now down to 2.1. Chest x-ray will be ordered tomorrow. He's had significant diuresis from Lasix. We'll make a decision about thoracentesis tomorrow. Additional recommendations and suggestions are forthcoming. Labs, x-rays, and medications are reviewed. The patient is stable from the pulmonary standpoint, and is currently only on 2 L of oxygen. Plan dated 04/05/2023. The patient tolerated the thoracentesis very well. 1.4 L of fluid was removed. It was sent to laboratory for analysis. Continue to follow the patient, and make recommendations along the way. Cardiology will keep the patient, continue diuresing him. Coumadin can be restarted tonight, and my opinion. Labs, x- rays, and medications are reviewed. The patient still has lower extremity edema. Chest x-ray is much improved. We will continue to follow along. Time with Patient: Less than 30
[2023-04-05] MEDS ORDERED: WARFARIN 5 MG TAB PO ONE (18:00)
[2023-04-05] MEDS: SODIUM FERRIC GLUCONAT-SUCROSE 125 MG in SODIUM CHLORIDE 0.9% 100 ML IVPB SCH (18:36)
[2023-04-05] MEDS: ATORVASTATIN 80 MG TAB PO SCH (20:11)
[2023-04-05] MEDS: LORATADINE 10 MG TAB PO SCH (20:11)
[2023-04-05] MEDS: DONEPEZIL 10 MG TAB PO SCH (20:11)
--- NOTE | 2023-04-05 22:52 | P.PN ---
Subjective Progress Note Date: 04/05/23 He continues to complain of dyspnea with exertion. Pt for thoracentesis today per pulmonology. He continues on IV lasix with negative fluid balance. Objective - Vital Signs Vital signs: Vital Signs Temp 97.5 F L 04/05/23 19:37 Pulse 80 04/05/23 19:37 Resp 20 04/05/23 19:37 BP 111/69 04/05/23 19:37 Pulse Ox 97 04/05/23 19:37 FiO2 Intake & Output 04/05/23 04/05/23 04/06/23 06:59 18:59 06:59 Intake Total 540 477 Output Total 1150 2250 600 Balance -610 -7490 -600 Weight 82.9 kg Intake: Oral 540 477 Output: Drainage 1350 Left Upper Back 1350 Urine 1150 900 600 Other: Voiding Method Toilet Toilet Toilet Urinal Urinal # Voids 1 3 # Bowel Movements 1 - Exam Gen : well developed NAD CV: No murmur. 1+ edema BLE Lungs: diminished breath sounds, crackles at bases - Labs CBC & Chem 7: 04/02/23 03:19 04/05/23 08:52 Labs: Abnormal Lab Results - Last 24 Hours (Table) 04/05/23 04/05/23 Range/Units 08:52 08:52 PT 15.5 H (10.0-12.5) sec INR 1.5 H (<1.2) Sodium 135 L (137-145) mmol/L Potassium 3.3 L (3.5-5.1) mmol/L Chloride 95 L (98-107) mmol/L Carbon Dioxide 31 H (22-30) mmol/L BUN 61 H (9-20) mg/dL Creatinine 2.20 H (0.66-1.25) mg/dL Assessment and Plan Plan: Pt s/p thoracentesis today, resume coumadin per Cardiology. Continue with lasix and wean O2 as tolerated
[2023-04-06 02:29] LABS: Glucose, BF Source Pleural fluid; Glucose, Body Fluid 103 mg/dL; LDH, Body Fluid Source Pleural fluid; T. Protein, Body Fluid Source Pleural fluid; Total Protein, Body Fluid 1990 mg/dL
[2023-04-06 03:51] LABS: Appearance,BF Clear (Clear)
[2023-04-06] MEDS: carvediloL 3.125 MG TAB PO SCH (06:14)
[2023-04-06] MEDS: SYMBICORT 80-4.5 MCG INHALER INHALATION SCH (09:20)
[2023-04-06] MEDS: FUROSEMIDE 10 MG/ML 4 ML VIAL IV SCH ×2 (09:28→15:56)
[2023-04-06] MEDS: CLOPIDOGREL 75 MG TAB PO SCH (09:28)
[2023-04-06] MEDS: RANOLAZINE 500 MG TAB.ER.12H PO SCH (09:28)
[2023-04-06] MEDS: FAMOTIDINE 20 MG TAB PO SCH (09:28)
[2023-04-06] MEDS: EZETIMIBE 10 MG TAB PO SCH (09:28)
[2023-04-06] MEDS: DAPAGLIFLOZIN PROPANEDIOL 10 MG TABLET PO SCH (09:28)
[2023-04-06] MEDS: ISOSORBIDE MONONITRATE ER 30 MG TAB.ER.24H PO SCH (09:28)
--- NOTE | 2023-04-06 12:25 | P.PN ---
Subjective Progress Note Date: 04/06/23 Principal diagnosis: Shortness of breath, pleural effusion. Pulmonary consult dated 04/02/2023. This is a 82-year-old male, who was seen in the emergency department, trauma room #2. The patient presented to the emergency department on April 01, complaining of shortness of breath. The patient states that his shortness of breath has been getting worse over the last couple days prior to admission. He was seen by cardiology in the emergency department, and they consulted us, because of the left-sided pleural effusion. The patient does have an extensive cardiac history. His medical history includes asthma, CVA, GERD, hyperlipidemia, hypertension, myocardial infarction, macular degeneration, and coronary artery bypass grafting. He was a lifelong nonsmoker. He has a significant history of valvular heart disease as well. White count 6, hemoglobin 8.9, hematocrit 29, with a normal platelet count. PT is 29.6 with an INR 3. Sodium 137, potassium 3.1, chlorides 100, CO2 26, BUN 55, and creatinine 2. Troponins were 0.049, 0.048, and 0.047. His N-terminal proBNP was elevated at 6400. Chest x-ray showed cardiomegaly, with a moderate left-sided pleural effusion and a small right-sided pleural effusion. Ultrasound of the chest reveals a very small right-sided pleural effusion, too small to ruiz, and a left-sided pleural effusion, which is 10 cm in size. Progress note dated 04/03/2023. This is a 82-year-old gentleman who seen today in room 371. The patient was seen yesterday in the emergency department, for shortness of breath. Chest x- ray revealed a pleural effusion. Unfortunately, the patient is on Coumadin. We are holding his Coumadin, and allowing his INR to drift down. I told him today that we would probably do his thoracentesis on Saturday. Progress note dated 04/04/2023. 82-year-old male was admitted with diagnosis of CHF, lower extremity edema, and pleural effusion. Clinically, the patient's doing well, any stye diuresed very nicely. His lower extremity edema still present. He'll have a chest x-ray done tomorrow, April 05. In addition, the patient's INR is currently 2.1. The patient may or may not need a thoracentesis tomorrow. We will evaluate him tomorrow and make a decision. Currently, his sodium is 135, potassium 3.8, chloride 94, CO2 28, BUN 58, creatinine 2.13. Progress note dated 04/05/2023. The patient's INR today was 1.5. He was on 2 L of oxygen. No IV fluids. Therefore, we went ahead and did a left-sided thoracentesis, and roughly 1.4 L of fluid was removed. It was sent to laboratory for analysis. The patient was feeling better after the procedure, and his chest x-ray looked much improved. I told her nurse, that if it was okay with cardiology, he could resume his Coumadin. Sodium 135, potassium 3.3, chlorides 95, CO2 31, BUN 61, and creatinine 2.20. Chest x-ray showed no evidence of pneumothorax. There was significant interval improvement in the left-sided effusion. There was car diomegaly. Progress note dated 04/06/2023. 82-year-old male with a history of CHF, and valvular heart disease. The patient underwent thoracentesis yesterday. 1.4 L of fluid was removed from the left pleural space. He was sent for analysis. His post procedure x-ray looked excellent. He tolerated the procedure very well. According to his newspaper reporter, the patient may be sent home either tomorrow or the next day, and will have continued diuresis. His lower extremities are much improved. C urrently, the patient is on 2 L of oxygen. No IV fluids. No new labs today. No chest x-ray today. Fluid analysis shows a glucose of 103, a total protein of less than 2 g, and an LDH of 94. This fluid is consistent with a transudate. Objective - Vital Signs Vital signs: Vital Signs Temp 98.4 F 04/06/23 08:00 Pulse 79 04/06/23 08:00 Resp 17 04/06/23 08:00 BP 106/68 04/06/23 08:00 Pulse Ox 100 04/06/23 09:21 FiO2 Intake & Output 04/05/23 04/06/23 04/06/23 18:59 06:59 18:59 Intake Total 477 358 Output Total 5000 1300 1000 Balance -1773 -1300 -642 Weight 81.5 kg Intake: Oral 477 358 Output: Drainage 1350 Left Upper Back 1350 Urine 900 1300 1000 Other: Voiding Method Toilet Toilet Toilet Urinal # Voids 3 1 3 # Bowel Movements 1 - Exam No acute distress, oriented 3. Currently on 2 L nasal cannula. Saturations are 99 %. HEENT examination is grossly unremarkable. Mucous membranes are moist. No oral lesions. Neck supple. Full range of motion. No adenopathy thyromegaly or neck vein distention. Cardiovascular examination reveals an irregular rhythm and rate. S1-S2 normal. No S3 or S4. No discernible murmur noted. Heart rate 79 bpm. Lungs reveal diminished breath sounds and dullness at the left base. No rhonchi or wheezes. Abdomen soft bowel sounds are heard. No masses or tenderness. Extremities are intact. No cyanosis or clubbing. 1+ lower extremity edema. Skin is without rash or lesion. Neurologic examination is brief but nonfocal. - Labs CBC & Chem 7: 04/02/23 03:19 04/05/23 08:52 Labs: Microbiology - Last 24 Hours (Table) 04/05/23 11:00 Gram Stain - Preliminary Pleural Fluid Assessment and Plan Assessment: Progressive shortness of breath, in part related to left-sided pleural effusion and chronic atrial fibrillation. S/P left-sided thoracentesis, 04/05/2023, was 1.4 L removed. History of chronic atrial fibrillation. History of myocardial infarction. History of valvular heart disease. History of previous bypass grafting. History of CVA. History of gastroesophageal reflux disease. History of hyperlipidemia. History of hypertension. History of asthma. Plan: Plan dated 04/02/2023. Cardiology is holding the patient's Coumadin. Eventually, the patient will benefit from a thoracentesis. We will check an INR and PTT in the morning. I explained the process to the patient. He understands and agrees to go forward with thoracentesis, once his INR is in a safe range. No additional recommendations are made. The right-sided effusion is very small. Plan dated 04/03/2023. The patient's INR today was 2.6. Were allowing the patient's INR to drift down. Coumadin is on hold. The ultrasound of the chest was done, and reviewed. We will plan on doing a thoracentesis, later this week, maybe on Saturday. Currently, the patient's on 3 L. He's not having much in the way of respiratory difficulty or distress. Plan dated 04/04/2023. The patient's INR is now down to 2.1. Chest x-ray will be ordered tomorrow. He's had significant diuresis from Lasix. We'll make a decision about thoracentesis tomorrow. Additional recommendations and suggestions are forthcoming. Labs, x-rays, and medications are reviewed. The patient is stable from the pulmonary standpoint, and is currently only on 2 L of oxygen. Plan dated 04/05/2023. The patient tolerated the thoracentesis very well. 1.4 L of fluid was removed. It was sent to laboratory for analysis. Continue to follow the patient, and make recommendations along the way. Cardiology will keep the patient, continue diuresing him. Coumadin can be restarted tonight, and my opinion. Labs, x-r ays, and medications are reviewed. The patient still has lower extremity edema. Chest x-ray is much improved. We will continue to follow along. Plan dated 04/06/2023. The patient's on 2 L. He feels much improved. His lower extremity edema is much improved. From our perspective, the patient could be considered for possible discharge. I did mention to the nurse that Coumadin can be restarted. His postprocedure chest x-ray looked excellent. The initial fluid analysis suggested transudate, i.e., from the patient's history of CHF. No additional recommendations are made at this time. Time with Patient: Less than 30
[2023-04-06 12:45] LABS: INR 1.2 (<1.2); Prothrombin Time 13.1 sec (10.0-12.5)
[2023-04-06 12:57] VITALS: BP 122/79; PULSE 76; RESP 18; TEMP 98.8
[2023-04-06 12:57] LABS: Basophils % (A) 0 %; Eosinophils # (A) 0.2 k/uL (0-0.7); Eosinophils % (A) 2 %; HCT 31.9 % (39.0-53.0); HGB 9.9 gm/dL (13.0-17.5); Hypochromasia Marked; Lymphocytes # (A) 0.5 k/uL (1.0-4.8); Lymphocytes % (A) 6 %; MCH 27.5 pg (25.0-35.0); MCHC 31.1 g/dL (31.0-37.0); MCV 88.3 fL (80.0-100.0); Mean Platelet Volume 7.9; Monocytes # (A) 0.9 k/uL (0-1.0); Monocytes % (A) 12 %; Neutrophils # (A) 5.7 k/uL (1.3-7.7); Neutrophils % (A) 76 %; Platelet Count 344 k/uL (150-450); Poikilocytosis Moderate; RBC 3.62 m/uL (4.30-5.90); RDW 15.6 % (11.5-15.5); WBC 7.5 k/uL (3.8-10.6)
[2023-04-06 13:27] LABS: African American GFR (CKD) 37 (>60 ml/min/1.73 sqM); Anion Gap 13 mmol/L; Blood Urea Nitrogen 57 mg/dL (9-20); Calcium 9.4 mg/dL (8.4-10.2); Carbon Dioxide 29 mmol/L (22-30); Chloride 94 mmol/L (98-107); Glucose 99 mg/dL (74-99); Non-African American GFR(CKD) 32 (>60 ml/min/1.73 sqM); Potassium 3.2 mmol/L (3.5-5.1); Sodium 136 mmol/L (137-145)
--- NOTE | 2023-04-06 13:39 | P.PN ---
Subjective Progress Note Date: 04/06/23 * 82-year-old male, who was seen in the emergency department, trauma room #2. The patient presented to the emergency department on April 01, complaining of shortness of breath. The patient states that his shortness of breath has been getting worse over the last couple days prior to admission. He was seen by cardiology in the emergency department, and they consulted us, because of the left-sided pleural effusion. The patient does have an extensive cardiac history. His medical history includes asthma, CVA, GERD, hyperlipidemia, hypertension, myocardial infarction, macular degeneration, and coronary artery bypass grafting. He was a lifelong nonsmoker. He has a significant history of valvular heart disease as well. White count 6, hemoglobin 8.9, hematocrit 29, with a normal platelet count. PT is 29.6 with an INR 3. Sodium 137, potassium 3.1, chlorides 100, CO2 26, BUN 55, and creatinine 2. Troponins were 0.049, 0.048, and 0.047. His N-terminal proBNP was elevated at 6400. Chest x-ray showed cardiomegaly, with a moderate left-sided pleural effusion and a small right-sided pleural effusion. Ultrasound of the chest reveals a very small right-sided pleural effusion, too small to ruiz, and a left-sided pleural effusion, which is 10 cm in size. * Progress note dated 04/03/2023.This is a 82-year-old gentleman who seen today in room 371. The patient was seen yesterday in the emergency department, for shortness of breath. Chest x-ray revealed a pleural effusion. Unfortunately, the patient is on Coumadin. We are holding his Coumadin, and allowing his INR to drift down. I told him today that we would probably do his thoracentesis on Saturday. * Progress note dated 04/04/2023. 82-year-old male was admitted with diagnosis of CHF, lower extremity edema, and pleural effusion. Clinically, the patient's doing well, any stye diuresed very nicely. His lower extremity edema still present. He'll have a chest x-ray done tomorrow, April 05. In addition, the patient's INR is currently 2.1. The patient may or may not need a thoracentesis tomorrow. We will evaluate him tomorrow and make a decision. Currently, his sodium is 135, potassium 3.8, chloride 94, CO2 28, BUN 58, creatinine 2.13. * Progress note dated 04/05/2023. The patient's INR today was 1.5. He was on 2 L of oxygen. No IV fluids. Therefore, we went ahead and did a left-sided thoracentesis, and roughly 1.4 L of fluid was removed. It was sent to laboratory for analysis. The patient was feeling better after the procedure, and his chest x-ray looked much improved. I told her nurse, that if it was okay with cardiology, he could resume his Coumadin. Sodium 135, potassium 3.3, chlorides 95, CO2 31, BUN 61, and creatinine 2.20. Chest x-ray showed no evidence of pneumothorax. There was significant interval improvement in the left-sided effusion. There was cardiomegaly. * 04/06/23: Patient seen and evaluated bedside, patient was seen by pulmonary medicine and cleared for discharge. Patient on room air and feels better after thoracentesis. Requesting discharge care plan coordinated with nursing staff, blood work reviewed PHYSICAL EXAMINATION: GENERAL: The patient is alert and oriented x3, nasal cannula. HEENT: Pupils are round and equally reacting to light. EOMI. CARDIOVASCULAR: S1 and S2 present. Lower extremity edema PULMONARY: She is breath sounds bilaterally ABDOMEN: Soft, nontender, nondistended, normoactive bowel sounds. No palpable organomegaly. MUSCULOSKELETAL: No joint swelling or deformity. EXTREMITIES: No cyanosis, clubbing, or pedal edema. NEUROLOGICAL: Gross neurological examination did not reveal any focal deficits. SKIN: No rashes. Objective - Vital Signs Vital signs: Vital Signs Temp 98.8 F 04/06/23 11:45 Pulse 76 04/06/23 11:45 Resp 18 04/06/23 11:45 BP 122/79 04/06/23 11:45 Pulse Ox 94 L 04/06/23 11:45 FiO2 Intake & Output 04/05/23 04/06/23 04/06/23 18:59 06:59 18:59 Intake Total 477 358 Output Total 2250 1300 1000 Balance -9261 -5057 -744 Weight 81.5 kg Intake: Oral 477 358 Output: Drainage 1350 Left Upper Back 1350 Urine 900 1300 1000 Other: Voiding Method Toilet Toilet Toilet Urinal # Voids 3 1 3 # Bowel Movements 1 - Labs CBC & Chem 7: 04/06/23 11:14 04/06/23 11:14 Labs: Abnormal Lab Results - Last 24 Hours (Table) 04/06/23 04/06/23 04/06/23 Range/Units 11:14 11:14 11:14 RBC 3.62 L (4.30-5.90) m/uL Hgb 9.9 L (13.0-17.5) gm/dL Hct 31.9 L (39.0-53.0) % RDW 15.6 H (11.5-15.5) % Lymphocytes # 0.5 L (1.0-4.8) k/uL PT 13.1 H (10.0-12.5) sec INR 1.2 H (<1.2) Sodium 136 L (137-145) mmol/L Potassium 3.2 L (3.5-5.1) mmol/L Chloride 94 L (98-107) mmol/L BUN 57 H (9-20) mg/dL Creatinine 1.93 H (0.66-1.25) mg/dL Microbiology - Last 24 Hours (Table) 04/05/23 11:00 Gram Stain - Preliminary Pleural Fluid Assessment and Plan Assessment: Assessment and plan * Acute on chronic congestive heart failure systolic dysfunction ejection fraction 30-35% * Ischemic cardiomyopathy with history of CABG and PCI January 2023 * Valvular heart disease with aortic stenosis, mitral regurgitation * Bilateral pleural effusion left greater than right status post thoracentesis * Acute kidney injury on chronic kidney disease stage IIIa * Persistent atrial fibrillation * Ascending aortic aneurysm * Severe pulmonary hypertension * Hyperlipidemia * Regards to congestive heart failure patient seen by cardiology, patient aggressively diuresed with Lasix, patient to discharge on Lasix 40 mg twice a day along with potassium supplementation. Patient will need outpatient follow-up with cardiology and primary team. * In regards to coronary artery disease patient was on aspirin, Plavix and Coumadin prior to admission. Patient seen by cardiology and aspirin discontinued continue Plavix and Coumadin continue to monitor INR levels post discharge * In regards to bilateral pleural effusion, patient is status post thoracentesis left lung clear colored pleural fluid obtained transudate in nature. Patient seen by pulmonary medicine and cleared for discharge on 04/06/23 resting PULSE OXIMETRY COMPLETED PRIOR TO DISCHARGE WHEN NURSING STAFF * In regards to atrial fibrillation continue Coreg, Coumadin, Plavix * Questions answered at bedside, patient requesting discharge. Patient remained stable. Waiting for cardiology clearance
[2023-04-06] MEDS ORDERED: POTASSIUM CHLORIDE ER 20 MEQ TAB.ER PO STA (13:40)
--- NOTE | 2023-04-06 13:41 | P.DS ---
Providers Date of admission: 04/03/23 07:29 Expected date of discharge: 04/06/23 Attending physician: Ramesh Pretty MD Consults: 04/01/23 20:14 Consult Physician Routine Consulting Provider: Breezy Bowers Consult Reason/Comments: known Do you want consulting provider notified?: Yes 04/02/23 08:35 Consult Physician Routine Consulting Provider: Rogelio Sampson Consult Reason/Comments: pleural effusion, CHF Do you want consulting provider notified?: Yes Primary care physician: Bridget Barraganbagh [facility] Course: * 82-year-old male, who was seen in the emergency department, trauma room #2. The patient presented to the emergency department on April 01, complaining of shortness of breath. The patient states that his shortness of breath has been getting worse over the last couple days prior to admission. He was seen by cardiology in the emergency department, and they consulted us, because of the left-sided pleural effusion. The patient does have an extensive cardiac history. His medical history includes asthma, CVA, GERD, hyperlipidemia, hypertension, myocardial infarction, macular degeneration, and coronary artery bypass grafting. He was a lifelong nonsmoker. He has a significant history of valvular heart disease as well. White count 6, hemoglobin 8.9, hematocrit 29, with a normal platelet count. PT is 29.6 with an INR 3. Sodium 137, potassium 3.1, chlorides 100, CO2 26, BUN 55, and creatinine 2. Troponins were 0.049, 0.048, and 0.047. His N-terminal proBNP was elevated at 6400. Chest x-ray showed cardiomegaly, with a moderate left-sided pleural effusion and a small right-sided pleural effusion. Ultrasound of the chest reveals a very small right-sided pleural effusion, too small to ruiz, and a left-sided pleural effusion, which is 10 cm in size. * Progress note dated 04/03/2023.This is a 82-year-old gentleman who seen today in room 371. The patient was seen yesterday in the emergency department, for shortness of breath. Chest x-ray revealed a pleural effusion. Unfortunately, the patient is on Coumadin. We are holding his Coumadin, and allowing his INR to drift down. I told him today that we would probably do his thoracentesis on Saturday. * Progress note dated 04/04/2023. 82-year-old male was admitted with diagnosis of CHF, lower extremity edema, and pleural effusion. Clinically, the patient's doing well, any stye diuresed very nicely. His lower extremity edema still present. He'll have a chest x-ray done tomorrow, April 05. In addition, the patient's INR is currently 2.1. The patient may or may not need a thoracentesis tomorrow. We will evaluate him tomorrow and make a decision. Currently, his sodium is 135, potassium 3.8, chloride 94, CO2 28, BUN 58, creatinine 2.13. * Progress note dated 04/05/2023. The patient's INR today was 1.5. He was on 2 L of oxygen. No IV fluids. Therefore, we went ahead and did a left-sided thoracentesis, and roughly 1.4 L of fluid was removed. It was sent to laboratory for analysis. The patient was feeling better after the procedure, and his chest x-ray looked much improved. I told her nurse, that if it was okay with cardiology, he could resume his Coumadin. Sodium 135, potassium 3.3, chlorides 95, CO2 31, BUN 61, and creatinine 2.20. Chest x-ray showed no evidence of pneumothorax. There was significant interval improvement in the left-sided effusion. There was cardiomegaly. * 04/06/23: Patient seen and evaluated bedside, patient was seen by pulmonary medicine and cleared for discharge. Patient on room air and feels better after thoracentesis. Requesting discharge care plan coordinated with nursing staff, blood work reviewed PHYSICAL EXAMINATION: GENERAL: The patient is alert and oriented x3, nasal cannula. HEENT: Pupils are round and equally reacting to light. EOMI. CARDIOVASCULAR: S1 and S2 present. Lower extremity edema PULMONARY: She is breath sounds bilaterally ABDOMEN: Soft, nontender, nondistended, normoactive bowel sounds. No palpable organomegaly. MUSCULOSKELETAL: No joint swelling or deformity. EXTREMITIES: No cyanosis, clubbing, or pedal edema. NEUROLOGICAL: Gross neurological examination did not reveal any focal deficits. SKIN: No rashes. Assessment: Assessment and plan Acute on chronic congestive heart failure systolic dysfunction ejection fraction 30-35% Ischemic cardiomyopathy with history of CABG and PCI January 2023 Valvular heart disease with aortic stenosis, mitral regurgitation Bilateral pleural effusion left greater than right status post thoracentesis Acute kidney injury on chronic kidney disease stage IIIa Persistent atrial fibrillation Ascending aortic aneurysm Severe pulmonary hypertension Hyperlipidemia Regards to congestive heart failure patient seen by cardiology, patient aggressively diuresed with Lasix, patient to discharge on Lasix 40 mg twice a day along with potassium supplementation. Patient will need outpatient follow- up with cardiology and primary team. In regards to coronary artery disease patient was on aspirin, Plavix and Coumadin prior to admission. Patient seen by cardiology and aspirin discontinued continue Plavix and Coumadin continue to monitor INR levels post discharge In regards to bilateral pleural effusion, patient is status post thoracentesis left lung clear colored pleural fluid obtained transudate in nature. Patient seen by pulmonary medicine and cleared for discharge on 04/06/23 resting PULSE OXIMETRY COMPLETED PRIOR TO DISCHARGE WHEN NURSING STAFF In regards to atrial fibrillation continue Coreg, Coumadin, Plavix Questions answered at bedside, patient requesting discharge. Patient remained stable Patient Condition at Discharge: Good Plan - Discharge Summary Discharge Rx Participant: Yes New Discharge Prescriptions: New Dapagliflozin Propanediol [Farxiga] 10 mg PO DAILY 30 Days #30 tab Potassium Chloride [K-Tab ER] 20 meq PO DAILY 30 Days #30 tab Continue Loratadine [Claritin] 10 mg PO HS@2100 Warfarin [Coumadin] 5 mg PO DAILY@1800 Albuterol Inhaler [Ventolin Hfa Inhaler] 1 - 2 puff INHALATION RT-Q6H PRN PRN Reason: Shortness Of Breath Vit C/E/Zn/Coppr/Lutein/Zeaxan [Preservision Areds 2 Softgel] 1 cap PO BID@0900,2100 Donepezil [Aricept] 10 mg PO HS@2100 Atorvastatin [Lipitor] 80 mg PO HS@2100 Isosorbide Mononitrate ER [Imdur] 30 mg PO DAILY@0900 Fluticasone Propion/Salmeterol [Fluticasone-Salmeterol 100-50] 1 puff IN HALATION RT-DAILY@0900 metOLazone [Zaroxolyn] 5 mg PO TUTH carvediloL [Coreg] 3.125 mg PO BID@0700,1700 allopurinoL [Zyloprim] 150 mg PO DAILY@0900 Ezetimibe [Zetia] 10 mg PO DAILY@0900 Clopidogrel [Plavix] 75 mg PO DAILY@0900 Famotidine [Pepcid] 40 mg PO DAILY@09 Nitroglycerin Sl Tabs [Nitrostat] 0.4 mg SUBLINGUAL Q5M PRN tab PRN Reason: Chest Pain Ranolazine [Ranexa] 500 mg PO BID@899,2099 Changed Furosemide [Lasix] 40 mg PO BID 30 Days #60 tab Discontinued Aspirin 81 mg PO DAILY@0900 Ciprofloxacin HCl [Cipro] 500 mg PO BID Discharge Medication List Loratadine [Claritin] 10 mg PO HS@209906/21/17 [History] Warfarin [Coumadin] 5 mg PO DAILY@1800 06/21/17 [History] Albuterol Inhaler [Ventolin Hfa Inhaler] 1 - 2 puff INHALATION RT-Q6H PRN 04/18/18 [History] Vit C/E/Zn/Coppr/Lutein/Zeaxan [Preservision Areds 2 Softgel] 1 cap PO BID@899,209904/18/18 [History] Atorvastatin [Lipitor] 80 mg PO HS@209901/04/23 [History] Clopidogrel [Plavix] 75 mg PO DAILY@89901/04/23 [History] Donepezil [Aricept] 10 mg PO HS@209901/04/23 [History] Ezetimibe [Zetia] 10 mg PO DAILY@89901/04/23 [History] Famotidine [Pepcid] 40 mg PO DAILY@89901/04/23 [History] Fluticasone Propion/Salmeterol [Fluticasone-Salmeterol 100-50] 1 puff INHALATION RT-DAILY@89901/04/23 [History] Isosorbide Mononitrate ER [Imdur] 30 mg PO DAILY@89901/04/23 [History] allopurinoL [Zyloprim] 150 mg PO DAILY@89901/04/23 [History] carvediloL [Coreg] 3.125 mg PO BID@0700,1700 01/04/23 [History] Nitroglycerin Sl Tabs [Nitrostat] 0.4 mg SUBLINGUAL Q5M PRN tab 02/09/23 [Rx] Ranolazine [Ranexa] 500 mg PO BID@09,209904/01/23 [History] metOLazone [Zaroxolyn] 5 mg PO TUTH 04/01/23 [History] Dapagliflozin Propanediol [Farxiga] 10 mg PO DAILY 30 Days #30 tab 04/06/23 [Rx] Furosemide [Lasix] 40 mg PO BID 30 Days #60 tab 04/06/23 [Rx] Potassium Chloride [K-Tab ER] 20 meq PO DAILY 30 Days #30 tab 04/06/23 [Rx] Follow up Appointment(s)/Referral(s): Bridget Pretty DO [Primary Care Provider] - 1-2 days Breezy Bowers DO [STAFF PHYSICIAN] - 1 Week Patient Instructions/Handouts: Chest Pain (DC), Thoracentesis (DC) Discharge Disposition: HOME SELF-CARE
[2023-04-06] MEDS: POTASSIUM CHLORIDE 10 MEQ in WATER FOR INJECTION 1 100ML.BAG IVPB SCH ×2 (13:49→15:05)
[2023-04-06] MEDS ORDERED: WARFARIN 5 MG TAB PO ONE (18:00)
== END 2023-04-06 16:38 | disposition home or self-care (01) | DRG 280 ==
LOC: EC 18:47 → 3SCARD 20:14 → OBSVTOIN 04-03 07:29
PROVIDERS: ADMIT Family Medicine; ATTEND Family Medicine
PROC: 0W9B3ZX Drainage of Left Pleural Cavity, Percutaneous Approach, Diagnostic (ICD-10-PCS; principal; 2023-04-05)
DX: I13.0 Hypertensive heart and chronic kidney disease with heart failure and stage 1 through stage 4 chronic kidney disease, or unspecified chronic kidney disease (principal); I50.23 Acute on chronic systolic (congestive) heart failure; I21.A1 Myocardial infarction type 2; N17.0 Acute kidney failure with tubular necrosis; I48.19 Other persistent atrial fibrillation; J91.8 Pleural effusion in other conditions classified elsewhere; I27.20 Pulmonary hypertension, unspecified; I71.21 Aneurysm of the ascending aorta, without rupture; N18.31 Chronic kidney disease, stage 3a; Z11.52 Encounter for screening for COVID-19; I25.5 Ischemic cardiomyopathy; I25.10 Atherosclerotic heart disease of native coronary artery without angina pectoris; E78.5 Hyperlipidemia, unspecified; I25.2 Old myocardial infarction; I08.3 Combined rheumatic disorders of mitral, aortic and tricuspid valves; J45.909 Unspecified asthma, uncomplicated; H35.30 Unspecified macular degeneration; K21.9 Gastro-esophageal reflux disease without esophagitis; M19.90 Unspecified osteoarthritis, unspecified site; R09.02 Hypoxemia; Z79.02 Long term (current) use of antithrombotics/antiplatelets; Z79.51 Long term (current) use of inhaled steroids; Z79.01 Long term (current) use of anticoagulants; Z79.82 Long term (current) use of aspirin; Z79.899 Other long term (current) drug therapy; Z95.1 Presence of aortocoronary bypass graft; Z95.5 Presence of coronary angioplasty implant and graft; Z86.73 Personal history of transient ischemic attack (TIA), and cerebral infarction without residual deficits; Z85.828 Personal history of other malignant neoplasm of skin
CPT/HCPCS: 36415; 71045; 71046; 76604; 80048; 80053; 82945; 83615; 83880; 84157; 84484; 85025; 85610; 85730; 87070; 87075; 87102; 87116; 87205; 87206; 87496; 87498; 87502; 87529; 87634; 87636; 87798; 89050; 93005; 93306; 94640; 94760; 96374; 96376; 99291